=== PATIENT | female | born 1940 | race African-American/Black ===

== ENCOUNTER 2020-06-17 09:09 | Inpatient (IN) ==
[2020-06-17] MEDS ORDERED: 0.9 % Sodium Chloride 1,000 ML IVC SCH (09:30)
[2020-06-17 10:46] LABS: Adenovirus Not Detected (Not Detect); Coronavirus 229E Not Detected (Not Detect); Coronavirus HKU1 Not Detected (Not Detect); Coronavirus NL63 Not Detected (Not Detect); Coronavirus OC43 Not Detected (Not Detect); Human Metapneumovirus Not Detected (Not Detect); Human Rhinovirus/Enterovirus Not Detected (Not Detect); SARS-CoV-2 Not Detected (Not Detect)
[2020-06-17 10:47] LABS: Bordetella Pertussis Not Detected (Not Detect); Chlamydophila pneumoniae Not Detected (Not Detect); Influenza A Subtype 2009 H1 Not Detected (Not Detect); Influenza B Not Detected (Not Detect); Mycoplasma pneumoniae Not Detected (Not Detect); Parainfluenza Virus 1 Not Detected (Not Detect); Parainfluenza Virus 2 Not Detected (Not Detect); Parainfluenza Virus 3 Not Detected (Not Detect); Parainfluenza Virus 4 Not Detected (Not Detect); Respiratory Syncytial Virus Not Detected (Not Detect)
[2020-06-17 13:53] LABS: Potassium 3.7 mEq/L (3.5-5.1)
[2020-06-17] MEDS ORDERED: *HR* Midazolam HCl 2 MG/2 ML VIAL ONE (14:50)
[2020-06-17] MEDS ORDERED: *HR* FentaNYL (PF) 100 MCG/2 ML VIAL ONE (14:50)
[2020-06-17] MEDS ORDERED: 0.9 % Sodium Chloride 2,000 ML ONE (15:02)
[2020-06-17] MEDS ORDERED: Heparin 1,000 UNITS/500 mL 500 ML ONE (15:03)
[2020-06-17] MEDS ORDERED: ISOVUE-370 200 ML INFUS..BTL ONE (15:03)
[2020-06-17] MEDS ORDERED: Nitroglycerin 1,000 MCG/10 ML VIAL IV ONE (15:03)
[2020-06-17] MEDS ORDERED: *HR* Heparin 10,000 UNIT/10 ML VIAL ONE (15:03)
[2020-06-17] MEDS ORDERED: 0.9 % Sodium Chloride 1,000 ML ONE (15:32)
[2020-06-17] MEDS ORDERED: Perflutren Lipid Microsphere 1.3 ML in 0.9 % Sodium Chloride 8.7 ML IVP PRN ×2 (17:01→19:32)
[2020-06-17] MEDS ORDERED: *HR* Heparin 5,000 UNIT/ML VIAL IVP ONE (17:02)
[2020-06-17] MEDS ORDERED: *HR* Heparin 5,000 UNIT/ML VIAL IVP PRN ×2 (17:02)
[2020-06-17] MEDS ORDERED: Heparin 25,000UNIT/250ML 1/2NS 25,000 UNIT/250 ML IV.SOLN IVC SCH (17:15)
[2020-06-17] MEDS ORDERED: Dextrose 50 % in Water (Vial) 30 ML, Sodium Bicarbonate 20 MEQ, Potassium Chloride 15 M... TH ONE (18:45)
[2020-06-17 19:47] LABS: Basophils # 0.1 K/mcL (0.0-0.2); Eosinophils # 0.5 K/mcL (0.0-0.6); Eosinophils % 5.7 %; Hematocrit 38.7 % (35.3-44.9); Hemoglobin 11.7 g/dL (11.5-15.4); Immature Granulocytes % 0.5 % (0-4); Lymphocytes # 2.5 K/mcL (0.6-4.6); Lymphocytes % 28.3 %; Mean Corpuscular HGB Conc 30.2 g/dL (31.6-35.5); Mean Corpuscular Hemoglobin 27.9 pg (28.0-33.3); Mean Corpuscular Volume 92.1 fL (83.0-100.0); Mean Platelet Volume 10.6 fL (9.4-12.4); Monocytes # 0.8 K/mcL (0.0-1.3); Monocytes % 8.6 %; Neutrophils # 4.9 K/mcL (1.6-8.9); Platelet Count 275 K/mcL (140-400); Red Cell Distribution Width 15.5 % (11.5-14.5); Segmented Neutrophils % 55.9 %; White Blood Count 8.8 K/mcL (4.3-11.1)
[2020-06-17 19:53] LABS: Heparin anti-factor XA UFH 0.3 IU/mL (0.30-0.70); INR 1.2; Prothrombin Time 13.3 Seconds (9.4-12.1)
[2020-06-17 20:08] LABS: Calcium 9.9 mg/dL (8.6-10.3); Chol/HDL Ratio 3.7 (0-4.9); Potassium 3.6 mEq/L (3.5-5.1)
[2020-06-17] MEDS: Chlorhexidine Rinse 15 ML MOUTHWASH MM SCH (21:07)
[2020-06-17] MEDS: ALPRAZolam 0.5 MG TABLET PO SCH (21:08)
[2020-06-17] MEDS: Mirtazapine 15 MG TABLET PO SCH (21:08)
[2020-06-17 21:52] LABS: Estimated Average Glucose 123 mg/dl
[2020-06-18 01:52] LABS: Bilirubin,Urine Negative (Negative); Blood,Urine Negative (Negative); Clarity,Urine Clear (Clear); Color,Urine Light-Yellow (Yellow); Glucose,Urine (UA) Normal (Normal); Hyaline Casts,Urine Few per lpf (None Seen); Ketones,Urine Negative (Negative); Leukocyte Esterase,Urine Moderate (Negative); Mucus,Urine Few per lpf (None-Few); Nitrite,Urine Negative (Negative); Protein,Urine Negative (Neg-Trace); RBC,Urine 0-3 per hpf (0-3); Specific Gravity,Urine 1.021 (1.010-1.025); Urobilinogen,Urine Normal (Normal); WBC,Urine 15-30 per hpf (0-3)
[2020-06-18 04:06] LABS: Basophils # 0.1 K/mcL (0.0-0.2); Basophils % 0.6 %; Eosinophils # 0.7 K/mcL (0.0-0.6); Eosinophils % 6.4 %; Hematocrit 35.7 % (35.3-44.9); Immature Granulocytes % 0.5 % (0-4); Lymphocytes % 27.3 %; Mean Corpuscular HGB Conc 30.8 g/dL (31.6-35.5); Mean Corpuscular Hemoglobin 27.9 pg (28.0-33.3); Mean Corpuscular Volume 90.6 fL (83.0-100.0); Monocytes % 9.2 %; Neutrophils # 6.2 K/mcL (1.6-8.9); Platelet Count 277 K/mcL (140-400); Red Blood Count 3.94 M/mcL (3.82-4.97); Red Cell Distribution Width 15.5 % (11.5-14.5)
[2020-06-18 04:24] LABS: Calcium 9.6 mg/dL (8.6-10.3); Potassium 3.7 mEq/L (3.5-5.1)
[2020-06-18] MEDS: Ondansetron 4 MG/2 ML VIAL IVP PRN (04:59)
[2020-06-18] MEDS ORDERED: *HR* FentaNYL (PF) 1,000 MCG/20 ML VIAL ONE (06:57)
[2020-06-18] MEDS ORDERED: *HR* Midazolam HCl 5 MG/5 ML VIAL IVP ONE (06:57)
[2020-06-18] MEDS ORDERED: *HR* Propofol 200 MG/20 ML VIAL IVP ONE (06:57)
[2020-06-18] MEDS ORDERED: *HR* Rocuronium Bromide 50 MG/5 ML VIAL ONE ×2 (06:59→09:21)
[2020-06-18] MEDS ORDERED: Famotidine 20 MG/2 ML VIAL ONE (06:59)
[2020-06-18] MEDS ORDERED: *HR* Magnesium Sulfate 1 GM/2 ML VIAL ONE (06:59)
[2020-06-18] MEDS ORDERED: Dexamethasone 4 MG/ML VIAL ONE (06:59)
[2020-06-18] MEDS ORDERED: *HR* PHENYLEPHRINE 1,000 MCG/10 ML SYRINGE IVP ONE (06:59)
[2020-06-18] MEDS ORDERED: CeFAZolin Syr 2,000MG/20 ML 2,000 MG/20 ML SYRINGE IVPB ONE (07:00)
[2020-06-18] MEDS ORDERED: Lidocaine 2% Syringe 100 MG/5 ML ONE (07:00)
[2020-06-18] MEDS ORDERED: Tranexamic Acid 1,000 MG/10 ML VIAL ONE (07:00)
[2020-06-18] MEDS: Aspirin 81 MG TAB.CHEW PO SCH (07:22)
[2020-06-18] MEDS: ALPRAZolam 0.5 MG TABLET PO SCH ×2 (07:23→21:57)
[2020-06-18] MEDS: Chlorhexidine Rinse 15 ML MOUTHWASH MM SCH ×2 (07:23→21:58)
[2020-06-18] MEDS: allopurinoL 300 MG TABLET PO SCH (07:23)
[2020-06-18] MEDS: allopurinoL 100 MG TABLET PO SCH (07:23)
[2020-06-18] MEDS ORDERED: Dextrose 50 % in Water (Vial) 30 ML, Sodium Bicarbonate 20 MEQ, Lidocaine 1% 5 ML, Insu... TH ONE ×3 (07:45)
[2020-06-18] MEDS ORDERED: Heparin 15,000 UNIT in 0.9 % Sodium Chloride 500 ML IV ONE (07:45)
[2020-06-18] MEDS ORDERED: Norepinephrine 4 MG in 0.9 % Sodium Chloride 250 ML IVC PRN (07:45)
[2020-06-18] MEDS ORDERED: Insulin Human Regular 100 UNIT in 0.9 % Sodium Chloride 100 ML IV PRN (07:45)
[2020-06-18 08:29] LABS: ABG Base Excess 1 mEq/L (-2 to 3); ABG Chloride 106 mEq/L (98-107); ABG Glucose 96 mg/dL (60-95); ABG HCO3 28 mEq/L (21-27); ABG Ionized Calcium 1.32 mmol/L (1.15-1.35); ABG Oxygen Saturation 100 % (95-98); ABG PCO2 50 mmHg (35-45); ABG PH 7.35 pH Units (7.32-7.45); ABG PO2 478 mmHg (85-104); ABG TCO2 29 mEq/L (20-26)
[2020-06-18 09:44] LABS: ABG Base Excess -3 mEq/L (-2 to 3); ABG Chloride 108 mEq/L (98-107); ABG Glucose 138 mg/dL (60-95); ABG HCO3 21 mEq/L (21-27); ABG Oxygen Saturation 100 % (95-98); ABG PCO2 36 mmHg (35-45); ABG PH 7.38 pH Units (7.32-7.45); ABG PO2 250 mmHg (85-104); ABG TCO2 23 mEq/L (20-26)
[2020-06-18] MEDS ORDERED: Protamine Sulfate 250 MG/25 ML VIAL IVP ONE (09:57)
[2020-06-18] MEDS ORDERED: Calcium Gluconate 1,000 MG/10 ML VIAL ONE (09:57)
[2020-06-18 10:31] LABS: ABG Base Excess 3 mEq/L (-2 to 3); ABG Chloride 103 mEq/L (98-107); ABG Glucose 187 mg/dL (60-95); ABG HCO3 28 mEq/L (21-27); ABG Ionized Calcium 1.09 mmol/L (1.15-1.35); ABG Oxygen Saturation 100 % (95-98); ABG PCO2 44 mmHg (35-45); ABG PH 7.42 pH Units (7.32-7.45); ABG PO2 612 mmHg (85-104); ABG TCO2 29 mEq/L (20-26)
[2020-06-18] MEDS ORDERED: *HR* FentaNYL (PF) 250 MCG/5 ML VIAL ONE (10:55)
[2020-06-18 11:01] LABS: ABG Base Excess 1 mEq/L (-2 to 3); ABG Chloride 103 mEq/L (98-107); ABG Glucose 148 mg/dL (60-95); ABG HCO3 27 mEq/L (21-27); ABG Oxygen Saturation 100 % (95-98); ABG PCO2 45 mmHg (35-45); ABG PH 7.38 pH Units (7.32-7.45); ABG PO2 601 mmHg (85-104); ABG TCO2 28 mEq/L (20-26)
[2020-06-18] MEDS ORDERED: Albumin Human 5% 12.5 GM/250 ML IV.SOLN ONE (11:38)
[2020-06-18 11:42] LABS: ABG Base Excess -3 mEq/L (-2 to 3); ABG Chloride 108 mEq/L (98-107); ABG Glucose 114 mg/dL (60-95); ABG HCO3 22 mEq/L (21-27); ABG Ionized Calcium 1.27 mmol/L (1.15-1.35); ABG Oxygen Saturation 100 % (95-98); ABG PCO2 40 mmHg (35-45); ABG PH 7.36 pH Units (7.32-7.45); ABG PO2 195 mmHg (85-104); ABG TCO2 24 mEq/L (20-26)
[2020-06-18] MEDS ORDERED: *HR* Dextrose 50 % in Water (Vial) 50 ML VIAL IVP PRN (12:26)
[2020-06-18] MEDS ORDERED: Albumin Human 5% 12.5 GM/250 ML IV.SOLN IVPB PRN (12:26)
[2020-06-18] MEDS ORDERED: Insulin Regular, Human 100 UNIT/ML IV PRN (12:26)
[2020-06-18] MEDS ORDERED: Naloxone 0.4 MG/ML INJ IVP PRN (12:26)
[2020-06-18] MEDS ORDERED: Potassium Chloride 40 MEQ/200 ML BAG IVPB PRN (12:26)
[2020-06-18] MEDS ORDERED: Acetaminophen 325 MG TABLET PO PRN (12:26)
[2020-06-18] MEDS ORDERED: *HR* Promethazine 25 MG/ML VIAL IVP PRN (12:26)
[2020-06-18 12:50] LABS: ABG Base Excess -2 mEq/L (-2 to 3); ABG HCO3 23 mEq/L (21-27); ABG Oxygen Saturation 99 % (95-98); ABG PCO2 38 mmHg (35-45); ABG PH 7.39 pH Units (7.32-7.45); ABG PO2 115 mmHg (85-104); ABG TCO2 24 mEq/L (20-26); Blood Gas Modality ASSIST CONTROL; Blood Gas VT 500 cc
[2020-06-18 13:14] LABS: Basophils % 0.3 %; Monocytes % 4.8 %; Nucleated Red Blood Cells 0.1 /100 WBC (0)
[2020-06-18 13:16] LABS: Basophils # 0.1 K/mcL (0.0-0.2); Eosinophils # 0.3 K/mcL (0.0-0.6); Eosinophils % 1.1 %; Hematocrit 36.3 % (35.3-44.9); Immature Granulocytes % 1.6 % (0-4); Mean Corpuscular HGB Conc 32.8 g/dL (31.6-35.5); Mean Corpuscular Hemoglobin 29.5 pg (28.0-33.3); Mean Corpuscular Volume 90.1 fL (83.0-100.0); Mean Platelet Volume 10.7 fL (9.4-12.4); Monocytes # 1.4 K/mcL (0.0-1.3); Red Blood Count 4.03 M/mcL (3.82-4.97); Red Cell Distribution Width 15.2 % (11.5-14.5); Segmented Neutrophils % 86.2 %
[2020-06-18 13:17] LABS: Lymphocytes # 1.8 K/mcL (0.6-4.6); Neutrophils # 25.2 K/mcL (1.6-8.9)
[2020-06-18 13:20] LABS: Hemoglobin 11.9 g/dL (11.5-15.4); Platelet Count 154 K/mcL (140-400); White Blood Count 29.2 K/mcL (4.3-11.1)
[2020-06-18 13:28] LABS: Activated Partial Thrombo Time 32.7 Seconds (26.0-36.0); INR 1.2; Prothrombin Time 13.8 Seconds (9.4-12.1)
[2020-06-18 13:29] LABS: Calcium 9.3 mg/dL (8.6-10.3); Magnesium 2.7 mg/dL (1.6-2.6); Potassium 4.6 mEq/L (3.5-5.1)
[2020-06-18 13:34] LABS: Platelet Estimate Normal (Normal)
[2020-06-18] MEDS: 0.9 % Sodium Chloride 1,000 ML IVC SCH (13:42)
[2020-06-18] MEDS: niCARdipine 20 MG/200 ML MLS IVC SCH ×2 (13:42→14:22)
[2020-06-18] MEDS: Norepinephrine 4 MG/254 ML IV.SOLN IVC SCH (13:43)
[2020-06-18] MEDS: Insulin Human Regular 100 UNIT in 0.9 % Sodium Chloride 100 ML IVC SCH (14:20)
[2020-06-18] MEDS: *HR* OxyCODONE/APAP 5/325 TABLET PO PRN ×2 (14:36→23:28)
[2020-06-18] MEDS: CeFAZolin 2 GM/120 ML BAG IVPB SCH (15:21)
[2020-06-18 16:29] LABS: ABG Base Excess -2 mEq/L (-2 to 3); ABG HCO3 22 mEq/L (21-27); ABG Oxygen Saturation 98 % (95-98); ABG PCO2 36 mmHg (35-45); ABG PO2 108 mmHg (85-104); ABG TCO2 23 mEq/L (20-26); Blood Gas Modality ASSIST CONTROL; Blood Gas VT 500 cc
[2020-06-18] MEDS ORDERED: Heparin 1,000 UNITS/500 mL IV.SOLN IR ONE (16:47)
[2020-06-18] MEDS ORDERED: Lidocaine 2% Syringe 100 MG/5 ML IVP ONE (16:47)
[2020-06-18] MEDS ORDERED: Tranexamic Acid 1,000 MG/10 ML VIAL IR ONE (16:47)
[2020-06-18] MEDS ORDERED: D5% in Water 250 ML IV BAG IV ONE (16:47)
[2020-06-18] MEDS ORDERED: Mannitol 25% vial 12.5 GM/50 ML VIAL IVPB ONE (16:47)
[2020-06-18] MEDS ORDERED: *HR* Magnesium Sulfate 2 GM/50 ML PIGGYBACK IVPB ONE (16:47)
[2020-06-18] MEDS ORDERED: Albumin Human 25% 25 GM/100 ML IV.SOLN IVPB ONE (16:47)
[2020-06-18] MEDS ORDERED: *HR* Heparin 10,000 UNIT/10 ML VIAL IR ONE (16:47)
[2020-06-18] MEDS ORDERED: *HR* Phenylephrine 10 MG/ML VIAL IVC ONE (16:47)
[2020-06-18] MEDS: *HR* FentaNYL (PF) 100 MCG/2 ML VIAL IVP PRN ×3 (18:00→21:57)
[2020-06-18 20:29] LABS: ABG Base Excess -2 mEq/L (-2 to 3); ABG HCO3 22 mEq/L (21-27); ABG Oxygen Saturation 98 % (95-98); ABG PCO2 35 mmHg (35-45); ABG PH 7.41 pH Units (7.32-7.45); ABG PO2 99 mmHg (85-104); ABG TCO2 23 mEq/L (20-26); Blood Gas Modality ASSIST CONTROL; Blood Gas VT 500 cc
[2020-06-18] MEDS: Mirtazapine 15 MG TABLET PO SCH (21:57)
[2020-06-18 22:12] LABS: ABG Base Excess -2 mEq/L (-2 to 3); ABG HCO3 23 mEq/L (21-27); ABG Oxygen Saturation 97 % (95-98); ABG PCO2 43 mmHg (35-45); ABG PH 7.35 pH Units (7.32-7.45); ABG PO2 99 mmHg (85-104); ABG TCO2 25 mEq/L (20-26)
[2020-06-19] MEDS: CeFAZolin 2 GM/120 ML BAG IVPB SCH (01:21)
[2020-06-19] MEDS: 0.9 % Sodium Chloride 1,000 ML IVC SCH (02:37)
[2020-06-19] MEDS: *HR* OxyCODONE/APAP 5/325 TABLET PO PRN ×2 (03:22→09:23)
[2020-06-19 04:59] LABS: Basophils # 0.1 K/mcL (0.0-0.2); Basophils % 0.2 %; Hematocrit 28.3 % (35.3-44.9); Immature Granulocytes % 0.8 % (0-4); Lymphocytes # 1.2 K/mcL (0.6-4.6); Lymphocytes % 5.2 %; Mean Corpuscular HGB Conc 31.8 g/dL (31.6-35.5); Mean Corpuscular Hemoglobin 29.2 pg (28.0-33.3); Mean Corpuscular Volume 91.9 fL (83.0-100.0); Mean Platelet Volume 11.4 fL (9.4-12.4); Monocytes # 1.9 K/mcL (0.0-1.3); Monocytes % 8.3 %; Neutrophils # 19.6 K/mcL (1.6-8.9); Nucleated Red Blood Cells 0.2 /100 WBC (0); Platelet Count 135 K/mcL (140-400); Red Blood Count 3.08 M/mcL (3.82-4.97); Red Cell Distribution Width 15.3 % (11.5-14.5); Segmented Neutrophils % 85.5 %
[2020-06-19 05:16] LABS: Calcium 8.9 mg/dL (8.6-10.3); Potassium 4.4 mEq/L (3.5-5.1)
[2020-06-19] MEDS ORDERED: ALPRAZolam 0.25 MG TABLET PO PRN (08:04)
[2020-06-19] MEDS: Chlorhexidine Rinse 15 ML MOUTHWASH MM SCH ×2 (08:41→20:56)
[2020-06-19] MEDS: Pantoprazole 40 MG VIAL IVP SCH (08:41)
[2020-06-19] MEDS: allopurinoL 100 MG TABLET PO SCH (08:41)
[2020-06-19] MEDS: ALPRAZolam 0.5 MG TABLET PO SCH ×2 (08:42→20:56)
[2020-06-19] MEDS: allopurinoL 300 MG TABLET PO SCH (08:42)
[2020-06-19] MEDS: Aspirin 81 MG TAB.CHEW PO SCH (08:42)
[2020-06-19] MEDS: Ringers Solution, Lactated 1,000 ML IVC SCH ×2 (09:09→22:24)
[2020-06-19 10:32] LABS: Sodium, Urine 15.9 mEq/L
[2020-06-19] MEDS: Ondansetron 4 MG/2 ML VIAL IVP PRN (12:09)
[2020-06-19] MEDS: Insulin Human Regular 100 UNIT in 0.9 % Sodium Chloride 100 ML IVC SCH (14:55)
[2020-06-19] MEDS: *HR* Heparin 5,000 UNIT/ML VIAL SQ SCH (17:52)
[2020-06-19] MEDS: Piperacillin/Tazobactam 3.375 GM in 0.9 % Sodium Chloride Mini Bag 100 ML IVPB SCH (17:53)
[2020-06-19] MEDS: Mirtazapine 15 MG TABLET PO SCH (20:56)
[2020-06-20 03:47] LABS: Basophils % 0.3 %; Hemoglobin 7.7 g/dL (11.5-15.4); Nucleated Red Blood Cells 0.3 /100 WBC (0)
[2020-06-20 03:48] LABS: Basophils # 0.1 K/mcL (0.0-0.2); Hematocrit 24.4 % (35.3-44.9); Immature Granulocytes % 0.6 % (0-4); Lymphocytes # 1.7 K/mcL (0.6-4.6); Lymphocytes % 6.1 %; Mean Corpuscular HGB Conc 31.6 g/dL (31.6-35.5); Mean Corpuscular Hemoglobin 29.3 pg (28.0-33.3); Mean Corpuscular Volume 92.8 fL (83.0-100.0); Mean Platelet Volume 11.9 fL (9.4-12.4); Monocytes # 2.5 K/mcL (0.0-1.3); Monocytes % 9.1 %; Platelet Count 133 K/mcL (140-400); Red Blood Count 2.63 M/mcL (3.82-4.97); Red Cell Distribution Width 15.6 % (11.5-14.5); Segmented Neutrophils % 83.9 %; White Blood Count 27.1 K/mcL (4.3-11.1)
[2020-06-20 03:50] LABS: Neutrophils # 22.7 K/mcL (1.6-8.9)
[2020-06-20 04:05] LABS: Calcium 8.7 mg/dL (8.6-10.3); Potassium 4.2 mEq/L (3.5-5.1)
[2020-06-20] MEDS: Piperacillin/Tazobactam 3.375 GM in 0.9 % Sodium Chloride Mini Bag 100 ML IVPB SCH ×2 (05:36→18:19)
[2020-06-20] MEDS: *HR* Heparin 5,000 UNIT/ML VIAL SQ SCH ×2 (05:37→17:31)
[2020-06-20] MEDS: Chlorhexidine Rinse 15 ML MOUTHWASH MM SCH ×2 (08:20→19:40)
[2020-06-20] MEDS: allopurinoL 100 MG TABLET PO SCH (08:21)
[2020-06-20] MEDS: allopurinoL 300 MG TABLET PO SCH (08:21)
[2020-06-20] MEDS: Aspirin 81 MG TAB.CHEW PO SCH (08:21)
[2020-06-20] MEDS: Pantoprazole 40 MG VIAL IVP SCH (08:21)
[2020-06-20] MEDS: Ringers Solution, Lactated 1,000 ML IVC SCH (11:43)
[2020-06-20] MEDS: Ondansetron 4 MG/2 ML VIAL IVP PRN (11:54)
[2020-06-20] MEDS: ALPRAZolam 0.5 MG TABLET PO SCH ×2 (17:33→20:07)
[2020-06-20] MEDS: niCARdipine 20 MG/200 ML MLS IVC SCH ×4 (19:39→19:43)
[2020-06-20] MEDS: Insulin Human Regular 100 UNIT in 0.9 % Sodium Chloride 100 ML IVC SCH (19:40)
[2020-06-20] MEDS: Norepinephrine 4 MG/254 ML IV.SOLN IVC SCH ×2 (19:40→19:41)
[2020-06-20] MEDS: Mirtazapine 15 MG TABLET PO SCH (20:07)
[2020-06-20] MEDS ORDERED: Haloperidol Lactate 5 MG/ML VIAL IVP PRN (20:49)
[2020-06-21] MEDS: Ringers Solution, Lactated 1,000 ML IVC SCH ×2 (00:03→14:21)
[2020-06-21 05:31] LABS: Basophils # 0.1 K/mcL (0.0-0.2); Basophils % 0.2 %; Eosinophils # 0.3 K/mcL (0.0-0.6); Eosinophils % 1.3 %; Hematocrit 21.1 % (35.3-44.9); Hemoglobin 6.6 g/dL (11.5-15.4); Immature Granulocytes % 1.3 % (0-4); Lymphocytes # 2.1 K/mcL (0.6-4.6); Lymphocytes % 8.8 %; Mean Corpuscular HGB Conc 31.3 g/dL (31.6-35.5); Mean Corpuscular Hemoglobin 29.3 pg (28.0-33.3); Mean Corpuscular Volume 93.8 fL (83.0-100.0); Mean Platelet Volume 11.2 fL (9.4-12.4); Monocytes # 1.9 K/mcL (0.0-1.3); Monocytes % 7.9 %; Neutrophils # 19.3 K/mcL (1.6-8.9); Nucleated Red Blood Cells 1.8 /100 WBC (0); Platelet Count 133 K/mcL (140-400); Red Blood Count 2.25 M/mcL (3.82-4.97); Red Cell Distribution Width 15.9 % (11.5-14.5); Segmented Neutrophils % 80.5 %
[2020-06-21 05:50] LABS: Calcium 8.4 mg/dL (8.6-10.3); Potassium 3.5 mEq/L (3.5-5.1)
[2020-06-21] MEDS: Piperacillin/Tazobactam 3.375 GM in 0.9 % Sodium Chloride Mini Bag 100 ML IVPB SCH ×2 (06:19→18:05)
[2020-06-21] MEDS: *HR* Heparin 5,000 UNIT/ML VIAL SQ SCH ×2 (06:23→18:06)
[2020-06-21] MEDS ORDERED: 0.9 % Sodium Chloride 250 ML ONE (08:38)
[2020-06-21] MEDS: Pantoprazole 40 MG VIAL IVP SCH (08:51)
[2020-06-21] MEDS: allopurinoL 300 MG TABLET PO SCH (08:51)
[2020-06-21] MEDS: ALPRAZolam 0.5 MG TABLET PO SCH ×2 (08:51→20:00)
[2020-06-21] MEDS: allopurinoL 100 MG TABLET PO SCH (08:51)
[2020-06-21] MEDS: Aspirin 81 MG TAB.CHEW PO SCH (08:51)
[2020-06-21] MEDS: Chlorhexidine Rinse 15 ML MOUTHWASH MM SCH ×2 (08:52→19:59)
[2020-06-21] MEDS ORDERED: Furosemide 20 MG/2 ML VIAL IVP ONE (10:57)
[2020-06-21] MEDS: Insulin Human Regular 100 UNIT in 0.9 % Sodium Chloride 100 ML IVC SCH (11:22)
[2020-06-21] MEDS: Norepinephrine 4 MG/254 ML IV.SOLN IVC SCH (11:23)
[2020-06-21] MEDS: *HR* OxyCODONE/APAP 5/325 TABLET PO PRN (14:17)
[2020-06-21 18:20] LABS: Basophils # 0.1 K/mcL (0.0-0.2); Basophils % 0.3 %; Eosinophils # 0.7 K/mcL (0.0-0.6); Immature Granulocytes % 1.7 % (0-4); Lymphocytes # 2.2 K/mcL (0.6-4.6); Lymphocytes % 9.4 %; Mean Corpuscular HGB Conc 31.4 g/dL (31.6-35.5); Mean Corpuscular Hemoglobin 29.1 pg (28.0-33.3); Mean Corpuscular Volume 92.7 fL (83.0-100.0); Mean Platelet Volume 10.7 fL (9.4-12.4); Monocytes # 1.7 K/mcL (0.0-1.3); Monocytes % 7.6 %; Neutrophils # 17.9 K/mcL (1.6-8.9); Nucleated Red Blood Cells 3.9 /100 WBC (0); Platelet Count 139 K/mcL (140-400); Red Blood Count 3.02 M/mcL (3.82-4.97); Red Cell Distribution Width 16.1 % (11.5-14.5)
[2020-06-21 18:22] LABS: Hemoglobin 8.8 g/dL (11.5-15.4)
[2020-06-21] MEDS: Mirtazapine 15 MG TABLET PO SCH (20:02)
[2020-06-22] MEDS: *HR* OxyCODONE/APAP 5/325 TABLET PO PRN ×3 (03:09→21:59)
[2020-06-22] MEDS: Ringers Solution, Lactated 1,000 ML IVC SCH ×2 (03:22→16:22)
[2020-06-22 04:26] LABS: Basophils # 0.1 K/mcL (0.0-0.2); Basophils % 0.4 %; Eosinophils # 0.8 K/mcL (0.0-0.6); Eosinophils % 3.8 %; Hematocrit 27.9 % (35.3-44.9); Hemoglobin 8.7 g/dL (11.5-15.4); Immature Granulocytes % 1.8 % (0-4); Lymphocytes # 2.2 K/mcL (0.6-4.6); Lymphocytes % 10.4 %; Mean Corpuscular HGB Conc 31.2 g/dL (31.6-35.5); Mean Corpuscular Hemoglobin 28.7 pg (28.0-33.3); Mean Corpuscular Volume 92.1 fL (83.0-100.0); Mean Platelet Volume 11.4 fL (9.4-12.4); Monocytes # 1.8 K/mcL (0.0-1.3); Monocytes % 8.2 %; Neutrophils # 16.3 K/mcL (1.6-8.9); Nucleated Red Blood Cells 3.7 /100 WBC (0); Platelet Count 151 K/mcL (140-400); Red Blood Count 3.03 M/mcL (3.82-4.97); Red Cell Distribution Width 16.2 % (11.5-14.5); Segmented Neutrophils % 75.4 %; White Blood Count 21.5 K/mcL (4.3-11.1)
[2020-06-22 04:31] LABS: Calcium 8.5 mg/dL (8.6-10.3); Potassium 3.3 mEq/L (3.5-5.1)
[2020-06-22] MEDS: Piperacillin/Tazobactam 3.375 GM in 0.9 % Sodium Chloride Mini Bag 100 ML IVPB SCH ×3 (05:37→23:28)
[2020-06-22] MEDS: *HR* Heparin 5,000 UNIT/ML VIAL SQ SCH ×2 (05:38→18:58)
[2020-06-22] MEDS ORDERED: Potassium Chloride Elixir 20 MEQ/15 ML UDC PO ONE (07:00)
[2020-06-22] MEDS: Chlorhexidine Rinse 15 ML MOUTHWASH MM SCH ×2 (08:36→20:52)
[2020-06-22] MEDS: Aspirin 81 MG TAB.CHEW PO SCH (08:36)
[2020-06-22] MEDS: ALPRAZolam 0.5 MG TABLET PO SCH ×2 (09:26→20:49)
[2020-06-22] MEDS: allopurinoL 100 MG TABLET PO SCH (09:27)
[2020-06-22] MEDS: allopurinoL 300 MG TABLET PO SCH (09:27)
[2020-06-22 15:03] LABS: ABG Base Excess 4 mEq/L (-2 to 3); ABG HCO3 29 mEq/L (21-27); ABG Oxygen Saturation 98 % (95-98); ABG PCO2 45 mmHg (35-45); ABG PH 7.41 pH Units (7.32-7.45); ABG PO2 104 mmHg (85-104); ABG TCO2 30 mEq/L (20-26)
[2020-06-22] MEDS: Norepinephrine 4 MG/254 ML IV.SOLN IVC SCH (16:00)
[2020-06-22 16:38] LABS: VBG HCO3 27 mEq/L (21-27); VBG PCO2 49 mmHg (41-51); VBG PH 7.36 pH Units (7.32-7.42); VBG PO2 85 mmHg (25-50)
[2020-06-22 16:57] LABS: Magnesium 1.6 mg/dL (1.6-2.6); Phosphorous 1.3 mg/dL (2.7-4.5)
[2020-06-22 17:10] LABS: Thyroid Stimulating Hormone 5.681 mcIU/mL (0.340-5.600)
[2020-06-22] MEDS: niCARdipine 20 MG/200 ML MLS IVC SCH ×2 (19:06→19:07)
[2020-06-22] MEDS: Mirtazapine 15 MG TABLET PO SCH (20:49)
[2020-06-23 03:34] LABS: Basophils # 0.1 K/mcL (0.0-0.2); Basophils % 0.6 %; Eosinophils # 0.9 K/mcL (0.0-0.6); Eosinophils % 5.1 %; Hematocrit 28.2 % (35.3-44.9); Hemoglobin 8.6 g/dL (11.5-15.4); Immature Granulocytes % 2.9 % (0-4); Lymphocytes # 1.8 K/mcL (0.6-4.6); Lymphocytes % 10.1 %; Mean Corpuscular HGB Conc 30.5 g/dL (31.6-35.5); Mean Corpuscular Hemoglobin 28.2 pg (28.0-33.3); Mean Corpuscular Volume 92.5 fL (83.0-100.0); Mean Platelet Volume 10.8 fL (9.4-12.4); Monocytes # 1.9 K/mcL (0.0-1.3); Monocytes % 10.2 %; Neutrophils # 12.9 K/mcL (1.6-8.9); Nucleated Red Blood Cells 2.5 /100 WBC (0); Platelet Count 187 K/mcL (140-400); Red Blood Count 3.05 M/mcL (3.82-4.97); Red Cell Distribution Width 16.3 % (11.5-14.5); Segmented Neutrophils % 71.1 %; White Blood Count 18.1 K/mcL (4.3-11.1)
[2020-06-23 03:53] LABS: BUN/Creatinine Ratio 20 (6-26); Blood Urea Nitrogen 21 mg/dL (8-23); Calcium 8.3 mg/dL (8.6-10.3); Carbon Dioxide 27 mEq/L (23-29); Chloride 109 mEq/L (98-107); Glucose 118 mg/dL (70-105); Magnesium 1.6 mg/dL (1.6-2.6); Osmolality,Calculated 300 (280-300); Phosphorous 1.6 mg/dL (2.7-4.5); Potassium 3.8 mEq/L (3.5-5.1); Sodium 143 mEq/L (136-145); eGFR For African Americans > 60 (> 60); eGFR For Non-African Americans 52 (> 60)
[2020-06-23] MEDS: *HR* Heparin 5,000 UNIT/ML VIAL SQ SCH ×2 (05:38→18:08)
[2020-06-23] MEDS: Ringers Solution, Lactated 1,000 ML IVC SCH ×2 (05:39→19:51)
[2020-06-23] MEDS: Chlorhexidine Rinse 15 ML MOUTHWASH MM SCH ×2 (10:00→19:52)
[2020-06-23] MEDS: Piperacillin/Tazobactam 3.375 GM in 0.9 % Sodium Chloride Mini Bag 100 ML IVPB SCH ×3 (10:00→23:41)
[2020-06-23] MEDS: allopurinoL 300 MG TABLET PO SCH (10:01)
[2020-06-23] MEDS: Aspirin 81 MG TAB.CHEW PO SCH (10:01)
[2020-06-23] MEDS: allopurinoL 100 MG TABLET PO SCH (10:01)
[2020-06-23] MEDS: ALPRAZolam 0.5 MG TABLET PO SCH ×2 (10:01→19:52)
[2020-06-23] MEDS: Norepinephrine 4 MG/254 ML IV.SOLN IVC SCH (10:26)
[2020-06-23] MEDS: *HR* OxyCODONE/APAP 5/325 TABLET PO PRN (16:21)
[2020-06-23] MEDS: Mirtazapine 15 MG TABLET PO SCH (19:52)
[2020-06-24] MEDS: *HR* OxyCODONE/APAP 5/325 TABLET PO PRN ×2 (00:54→07:29)
[2020-06-24] MEDS: *HR* Heparin 5,000 UNIT/ML VIAL SQ SCH ×2 (05:34→18:23)
[2020-06-24 06:07] LABS: Basophils # 0.1 K/mcL (0.0-0.2); Basophils % 0.6 %; Eosinophils % 5.2 %; Hematocrit 27.5 % (35.3-44.9); Hemoglobin 8.6 g/dL (11.5-15.4); Immature Granulocytes % 4.9 % (0-4); Lymphocytes % 10.9 %; Mean Corpuscular HGB Conc 31.3 g/dL (31.6-35.5); Mean Corpuscular Hemoglobin 29.1 pg (28.0-33.3); Mean Corpuscular Volume 92.9 fL (83.0-100.0); Mean Platelet Volume 11.4 fL (9.4-12.4); Monocytes # 1.7 K/mcL (0.0-1.3); Monocytes % 9.2 %; Neutrophils # 12.8 K/mcL (1.6-8.9); Nucleated Red Blood Cells 1.2 /100 WBC (0); Platelet Count 194 K/mcL (140-400); Red Blood Count 2.96 M/mcL (3.82-4.97); Segmented Neutrophils % 69.2 %; White Blood Count 18.5 K/mcL (4.3-11.1)
[2020-06-24 06:31] LABS: BUN/Creatinine Ratio 21 (6-26); Blood Urea Nitrogen 19 mg/dL (8-23); Calcium 8.4 mg/dL (8.6-10.3); Carbon Dioxide 24 mEq/L (23-29); Chloride 107 mEq/L (98-107); Glucose 117 mg/dL (70-105); Osmolality,Calculated 291 (280-300); Potassium 3.5 mEq/L (3.5-5.1); Sodium 139 mEq/L (136-145); eGFR For African Americans > 60 (> 60); eGFR For Non-African Americans 59 (> 60)
[2020-06-24] MEDS: ALPRAZolam 0.5 MG TABLET PO SCH ×3 (07:28→20:29)
[2020-06-24] MEDS: Aspirin 81 MG TAB.CHEW PO SCH ×2 (07:28→10:18)
[2020-06-24] MEDS: allopurinoL 300 MG TABLET PO SCH ×2 (07:28→10:19)
[2020-06-24] MEDS: allopurinoL 100 MG TABLET PO SCH ×2 (07:28→10:19)
[2020-06-24] MEDS: Piperacillin/Tazobactam 3.375 GM in 0.9 % Sodium Chloride Mini Bag 100 ML IVPB SCH ×2 (07:29→17:02)
[2020-06-24] MEDS: Chlorhexidine Rinse 15 ML MOUTHWASH MM SCH ×3 (07:29→20:29)
[2020-06-24] MEDS ORDERED: Ondansetron 4 MG/2 ML VIAL IVP PRN (08:37)
[2020-06-24] MEDS ORDERED: *HR* Promethazine 25 MG/ML VIAL IVP PRN (08:37)
[2020-06-24] MEDS ORDERED: ALPRAZolam 0.25 MG TABLET PO PRN (08:37)
[2020-06-24] MEDS ORDERED: Acetaminophen 325 MG TABLET PO PRN (08:37)
[2020-06-24] MEDS ORDERED: Haloperidol Lactate 5 MG/ML VIAL IVP PRN (08:37)
[2020-06-24] MEDS ORDERED: Naloxone 0.4 MG/ML INJ IVP PRN (08:37)
[2020-06-24] MEDS ORDERED: *HR* Dextrose 50 % in Water (Vial) 50 ML VIAL IVP PRN (08:37)
[2020-06-24] MEDS: Venlafaxine XR (24 HR) 150 MG CAP.ER.24H PO SCH ×2 (10:18→20:30)
[2020-06-24] MEDS: Vitamin E 200 UNIT (90MG) CAPSULE PO SCH (10:18)
[2020-06-24] MEDS: Vitamin B Complex/Vit C/Vit E 1 EACH TABLET PO SCH (10:18)
[2020-06-24] MEDS: Cholecalciferol (D-3) 1,000 UNIT (25MCG) TABLET PO SCH (10:18)
[2020-06-24] MEDS: Nystatin POWDER 30 GM BOTTLE TP SCH (20:31)
[2020-06-24] MEDS: Mirtazapine 15 MG TABLET PO SCH (20:31)
[2020-06-25] MEDS: Piperacillin/Tazobactam 3.375 GM in 0.9 % Sodium Chloride Mini Bag 100 ML IVPB SCH ×4 (00:19→23:33)
[2020-06-25] MEDS: *HR* OxyCODONE/APAP 5/325 TABLET PO PRN ×2 (04:53→21:15)
[2020-06-25] MEDS: *HR* Heparin 5,000 UNIT/ML VIAL SQ SCH ×2 (04:54→17:02)
[2020-06-25] MEDS: Vitamin B Complex/Vit C/Vit E 1 EACH TABLET PO SCH (08:30)
[2020-06-25] MEDS: ALPRAZolam 0.5 MG TABLET PO SCH ×2 (08:30→21:14)
[2020-06-25] MEDS: allopurinoL 300 MG TABLET PO SCH (08:30)
[2020-06-25] MEDS: Venlafaxine XR (24 HR) 150 MG CAP.ER.24H PO SCH ×2 (08:31→21:15)
[2020-06-25] MEDS: Cholecalciferol (D-3) 1,000 UNIT (25MCG) TABLET PO SCH (08:31)
[2020-06-25] MEDS: allopurinoL 100 MG TABLET PO SCH (08:31)
[2020-06-25] MEDS: Nystatin POWDER 30 GM BOTTLE TP SCH ×2 (08:31→21:15)
[2020-06-25] MEDS: Chlorhexidine Rinse 15 ML MOUTHWASH MM SCH ×2 (08:31→21:15)
[2020-06-25] MEDS: Vitamin E 200 UNIT (90MG) CAPSULE PO SCH (08:32)
[2020-06-25] MEDS: Aspirin 81 MG TAB.CHEW PO SCH (08:32)
[2020-06-25] MEDS: Mirtazapine 15 MG TABLET PO SCH (21:14)
[2020-06-26] MEDS: *HR* Heparin 5,000 UNIT/ML VIAL SQ SCH ×2 (05:39→17:45)
[2020-06-26] MEDS: Vitamin E 200 UNIT (90MG) CAPSULE PO SCH (07:33)
[2020-06-26] MEDS: Aspirin 81 MG TAB.CHEW PO SCH (07:34)
[2020-06-26] MEDS: allopurinoL 100 MG TABLET PO SCH (07:34)
[2020-06-26] MEDS: Vitamin B Complex/Vit C/Vit E 1 EACH TABLET PO SCH (07:34)
[2020-06-26] MEDS: allopurinoL 300 MG TABLET PO SCH (07:34)
[2020-06-26] MEDS: *HR* OxyCODONE/APAP 5/325 TABLET PO PRN ×2 (07:34→19:42)
[2020-06-26] MEDS: Venlafaxine XR (24 HR) 150 MG CAP.ER.24H PO SCH ×2 (07:34→19:41)
[2020-06-26] MEDS: Chlorhexidine Rinse 15 ML MOUTHWASH MM SCH ×2 (07:35→19:42)
[2020-06-26] MEDS: Piperacillin/Tazobactam 3.375 GM in 0.9 % Sodium Chloride Mini Bag 100 ML IVPB SCH ×3 (07:35→23:37)
[2020-06-26] MEDS: Cholecalciferol (D-3) 1,000 UNIT (25MCG) TABLET PO SCH (07:35)
[2020-06-26] MEDS: Nystatin POWDER 30 GM BOTTLE TP SCH ×2 (07:35→19:43)
[2020-06-26] MEDS: ALPRAZolam 0.5 MG TABLET PO SCH ×2 (07:35→19:42)
[2020-06-26] MEDS: Mirtazapine 15 MG TABLET PO SCH (19:41)
[2020-06-27 05:22] LABS: Hematocrit 26.8 % (35.3-44.9); Hemoglobin 8.1 g/dL (11.5-15.4); Mean Corpuscular HGB Conc 30.2 g/dL (31.6-35.5); Mean Corpuscular Hemoglobin 28.4 pg (28.0-33.3); Mean Platelet Volume 10.6 fL (9.4-12.4); Platelet Count 307 K/mcL (140-400); Red Blood Count 2.85 M/mcL (3.82-4.97); Red Cell Distribution Width 17.8 % (11.5-14.5); White Blood Count 20.2 K/mcL (4.3-11.1)
[2020-06-27] MEDS: *HR* Heparin 5,000 UNIT/ML VIAL SQ SCH ×2 (05:33→16:52)
[2020-06-27 05:34] LABS: Calcium 8.8 mg/dL (8.6-10.3); Magnesium 1.6 mg/dL (1.6-2.6); Potassium 3.8 mEq/L (3.5-5.1)
[2020-06-27] MEDS: Chlorhexidine Rinse 15 ML MOUTHWASH MM SCH (07:39)
[2020-06-27] MEDS: polyethylene glycoL 3350 17 GM POWD.PACK PO SCH (07:39)
[2020-06-27] MEDS: Vitamin E 200 UNIT (90MG) CAPSULE PO SCH (07:39)
[2020-06-27] MEDS: ALPRAZolam 0.5 MG TABLET PO SCH (07:39)
[2020-06-27] MEDS: Cholecalciferol (D-3) 1,000 UNIT (25MCG) TABLET PO SCH (07:40)
[2020-06-27] MEDS: allopurinoL 100 MG TABLET PO SCH (07:40)
[2020-06-27] MEDS: Venlafaxine XR (24 HR) 150 MG CAP.ER.24H PO SCH ×2 (07:40→21:25)
[2020-06-27] MEDS: *HR* OxyCODONE/APAP 5/325 TABLET PO PRN ×2 (07:40→21:34)
[2020-06-27] MEDS: allopurinoL 300 MG TABLET PO SCH (07:40)
[2020-06-27] MEDS: Vitamin B Complex/Vit C/Vit E 1 EACH TABLET PO SCH (07:40)
[2020-06-27] MEDS: Piperacillin/Tazobactam 3.375 GM in 0.9 % Sodium Chloride Mini Bag 100 ML IVPB SCH (07:41)
[2020-06-27] MEDS: Aspirin 81 MG TAB.CHEW PO SCH (07:41)
[2020-06-27] MEDS: Nystatin POWDER 30 GM BOTTLE TP SCH ×2 (07:41→21:25)
[2020-06-27] MEDS ORDERED: Haloperidol Lactate 5 MG/ML VIAL IVP PRN (11:03)
[2020-06-27] MEDS: Ampicillin/Sulbactam 1,500 MG in 0.9 % Sodium Chloride Mini Bag 100 ML IVPB SCH ×2 (11:28→16:52)
[2020-06-27 12:13] LABS: Bilirubin,Urine Negative (Negative); Blood,Urine Negative (Negative); Clarity,Urine Clear (Clear); Color,Urine Yellow (Yellow); Glucose,Urine (UA) Normal (Normal); Ketones,Urine Negative (Negative); Leukocyte Esterase,Urine Negative (Negative); Nitrite,Urine Negative (Negative); Protein,Urine Trace mg/dL (Neg-Trace); Specific Gravity,Urine 1.026 (1.010-1.025); Urobilinogen,Urine Normal (Normal)
[2020-06-27] MEDS: Mirtazapine 15 MG TABLET PO SCH (21:25)
[2020-06-28] MEDS: Ampicillin/Sulbactam 1,500 MG in 0.9 % Sodium Chloride Mini Bag 100 ML IVPB SCH ×4 (00:20→16:12)
[2020-06-28 06:42] LABS: Hematocrit 25.6 % (35.3-44.9); Mean Corpuscular HGB Conc 31.3 g/dL (31.6-35.5); Mean Corpuscular Hemoglobin 28.8 pg (28.0-33.3); Mean Corpuscular Volume 92.1 fL (83.0-100.0); Mean Platelet Volume 10.5 fL (9.4-12.4); Platelet Count 343 K/mcL (140-400); Red Blood Count 2.78 M/mcL (3.82-4.97); Red Cell Distribution Width 17.4 % (11.5-14.5); White Blood Count 20.7 K/mcL (4.3-11.1)
[2020-06-28 07:00] LABS: Calcium 8.7 mg/dL (8.6-10.3); Magnesium 1.8 mg/dL (1.6-2.6); Potassium 3.4 mEq/L (3.5-5.1)
[2020-06-28] MEDS: *HR* Heparin 5,000 UNIT/ML VIAL SQ SCH ×2 (08:27→16:13)
[2020-06-28] MEDS: Aspirin 81 MG TAB.CHEW PO SCH (08:29)
[2020-06-28] MEDS: Venlafaxine XR (24 HR) 150 MG CAP.ER.24H PO SCH ×2 (08:29→22:14)
[2020-06-28] MEDS: allopurinoL 300 MG TABLET PO SCH (08:29)
[2020-06-28] MEDS: allopurinoL 100 MG TABLET PO SCH (08:29)
[2020-06-28] MEDS: polyethylene glycoL 3350 17 GM POWD.PACK PO SCH (08:30)
[2020-06-28] MEDS: Nystatin POWDER 30 GM BOTTLE TP SCH ×2 (08:30→21:50)
[2020-06-28] MEDS: Mirtazapine 15 MG TABLET PO SCH (22:14)
[2020-06-28] MEDS: Furosemide 20 MG/2 ML VIAL IVP SCH (22:15)
[2020-06-29] MEDS: Ampicillin/Sulbactam 1,500 MG in 0.9 % Sodium Chloride Mini Bag 100 ML IVPB SCH ×5 (00:20→23:30)
[2020-06-29] MEDS: *HR* OxyCODONE/APAP 5/325 TABLET PO PRN ×3 (03:50→23:29)
[2020-06-29 05:54] LABS: Hematocrit 25.5 % (35.3-44.9); Hemoglobin 8.1 g/dL (11.5-15.4); Mean Corpuscular HGB Conc 31.8 g/dL (31.6-35.5); Mean Corpuscular Hemoglobin 28.8 pg (28.0-33.3); Mean Corpuscular Volume 90.7 fL (83.0-100.0); Mean Platelet Volume 10.2 fL (9.4-12.4); Platelet Count 389 K/mcL (140-400); Red Blood Count 2.81 M/mcL (3.82-4.97); Red Cell Distribution Width 17.1 % (11.5-14.5); White Blood Count 22.5 K/mcL (4.3-11.1)
[2020-06-29 06:22] LABS: Calcium 8.7 mg/dL (8.6-10.3); Potassium 3.5 mEq/L (3.5-5.1)
[2020-06-29] MEDS: *HR* Heparin 5,000 UNIT/ML VIAL SQ SCH ×2 (06:55→17:28)
[2020-06-29] MEDS: Furosemide 20 MG/2 ML VIAL IVP SCH ×2 (08:46→20:55)
[2020-06-29] MEDS: Venlafaxine XR (24 HR) 150 MG CAP.ER.24H PO SCH ×2 (08:57→20:54)
[2020-06-29] MEDS: allopurinoL 300 MG TABLET PO SCH (08:58)
[2020-06-29] MEDS: allopurinoL 100 MG TABLET PO SCH (08:58)
[2020-06-29] MEDS: Aspirin 81 MG TAB.CHEW PO SCH (08:59)
[2020-06-29] MEDS: polyethylene glycoL 3350 17 GM POWD.PACK PO SCH (09:00)
[2020-06-29] MEDS: Nystatin POWDER 30 GM BOTTLE TP SCH ×2 (09:00→20:56)
[2020-06-29] MEDS: Mirtazapine 15 MG TABLET PO SCH (20:54)
[2020-06-30 06:11] LABS: Hematocrit 25.5 % (35.3-44.9); Hemoglobin 7.9 g/dL (11.5-15.4); Mean Corpuscular Hemoglobin 28.8 pg (28.0-33.3); Mean Corpuscular Volume 93.1 fL (83.0-100.0); Mean Platelet Volume 10.2 fL (9.4-12.4); Platelet Count 423 K/mcL (140-400); Red Blood Count 2.74 M/mcL (3.82-4.97); Red Cell Distribution Width 17.2 % (11.5-14.5); White Blood Count 20.5 K/mcL (4.3-11.1)
[2020-06-30] MEDS: *HR* Heparin 5,000 UNIT/ML VIAL SQ SCH ×2 (06:22→17:29)
[2020-06-30] MEDS: Ampicillin/Sulbactam 1,500 MG in 0.9 % Sodium Chloride Mini Bag 100 ML IVPB SCH ×4 (06:23→23:37)
[2020-06-30 06:36] LABS: Calcium 8.9 mg/dL (8.6-10.3); Potassium 3.4 mEq/L (3.5-5.1)
[2020-06-30] MEDS: Aspirin 81 MG TAB.CHEW PO SCH (09:06)
[2020-06-30] MEDS: Venlafaxine XR (24 HR) 150 MG CAP.ER.24H PO SCH ×2 (09:06→20:47)
[2020-06-30] MEDS: polyethylene glycoL 3350 17 GM POWD.PACK PO SCH (09:06)
[2020-06-30] MEDS: Furosemide 20 MG/2 ML VIAL IVP SCH ×2 (09:07→20:48)
[2020-06-30] MEDS: allopurinoL 300 MG TABLET PO SCH (09:07)
[2020-06-30] MEDS: allopurinoL 100 MG TABLET PO SCH (09:07)
[2020-06-30] MEDS: Nystatin POWDER 30 GM BOTTLE TP SCH ×2 (09:08→21:37)
[2020-06-30] MEDS ORDERED: Amiodarone Premix 360 MG/200 ML BAG IVC ONE (09:29)
[2020-06-30] MEDS ORDERED: Amiodarone Premix 150 MG/100 ML BAG IVPB ONE ×2 (09:29→09:30)
[2020-06-30] MEDS: Amiodarone Premix 360 MG/200 ML BAG IVC SCH (17:07)
[2020-06-30] MEDS: *HR* OxyCODONE/APAP 5/325 TABLET PO PRN (20:47)
[2020-06-30] MEDS: Mirtazapine 15 MG TABLET PO SCH (20:47)
[2020-06-30] MEDS: Nystatin SUSP 5 ML UD.LIQ PO SCH ×2 (20:48→21:37)
[2020-06-30] MEDS: Nystatin Cream 15 GM TUBE TP SCH (21:38)
[2020-06-30] MEDS: Triamcinolone Acet 0.1% CRM 15 GM TUBE TP SCH (21:38)
[2020-07-01 04:32] LABS: Basophils # 0.1 K/mcL (0.0-0.2); Basophils % 0.5 %; Eosinophils # 0.4 K/mcL (0.0-0.6); Eosinophils % 2.2 %; Hematocrit 24.8 % (35.3-44.9); Hemoglobin 7.4 g/dL (11.5-15.4); Immature Granulocytes % 1.8 % (0-4); Lymphocytes % 10.6 %; Mean Corpuscular HGB Conc 29.8 g/dL (31.6-35.5); Mean Corpuscular Hemoglobin 27.6 pg (28.0-33.3); Mean Corpuscular Volume 92.5 fL (83.0-100.0); Mean Platelet Volume 10.1 fL (9.4-12.4); Monocytes # 1.1 K/mcL (0.0-1.3); Monocytes % 6.1 %; Neutrophils # 14.5 K/mcL (1.6-8.9); Nucleated Red Blood Cells 0.2 /100 WBC (0); Platelet Count 466 K/mcL (140-400); Red Blood Count 2.68 M/mcL (3.82-4.97); Red Cell Distribution Width 17.1 % (11.5-14.5); Segmented Neutrophils % 78.8 %; White Blood Count 18.5 K/mcL (4.3-11.1)
[2020-07-01 04:58] LABS: Calcium 8.6 mg/dL (8.6-10.3); Potassium 3.4 mEq/L (3.5-5.1)
[2020-07-01] MEDS: Ampicillin/Sulbactam 1,500 MG in 0.9 % Sodium Chloride Mini Bag 100 ML IVPB SCH (05:00)
[2020-07-01] MEDS: Amiodarone Premix 360 MG/200 ML BAG IVC SCH (05:30)
[2020-07-01] MEDS: Aspirin 81 MG TAB.CHEW PO SCH (07:24)
[2020-07-01] MEDS: Nystatin SUSP 5 ML UD.LIQ PO SCH ×4 (07:24→21:03)
[2020-07-01] MEDS: allopurinoL 300 MG TABLET PO SCH (07:25)
[2020-07-01] MEDS: allopurinoL 100 MG TABLET PO SCH (07:26)
[2020-07-01] MEDS: Venlafaxine XR (24 HR) 150 MG CAP.ER.24H PO SCH ×2 (07:26→21:03)
[2020-07-01] MEDS: polyethylene glycoL 3350 17 GM POWD.PACK PO SCH (07:27)
[2020-07-01] MEDS: Triamcinolone Acet 0.1% CRM 15 GM TUBE TP SCH ×2 (07:28→21:04)
[2020-07-01] MEDS: Nystatin POWDER 30 GM BOTTLE TP SCH ×2 (07:29→21:04)
[2020-07-01] MEDS: Nystatin Cream 15 GM TUBE TP SCH ×3 (07:43→21:04)
[2020-07-01] MEDS: *HR* Amiodarone 200 MG TABLET PO SCH ×2 (07:45→21:03)
[2020-07-01] MEDS: *HR* OxyCODONE/APAP 5/325 TABLET PO PRN ×2 (07:54→18:41)
[2020-07-01] MEDS ORDERED: Apixaban 5 MG TABLET PO SCH (09:00)
[2020-07-01] MEDS ORDERED: Furosemide 40 MG TABLET PO SCH (09:00)
[2020-07-01 12:39] LABS: Adenovirus Not Detected (Not Detect); Bordetella Pertussis Not Detected (Not Detect); Chlamydophila pneumoniae Not Detected (Not Detect); Coronavirus 229E Not Detected (Not Detect); Coronavirus HKU1 Not Detected (Not Detect); Coronavirus NL63 Not Detected (Not Detect); Coronavirus OC43 Not Detected (Not Detect); Human Metapneumovirus Not Detected (Not Detect); Human Rhinovirus/Enterovirus Not Detected (Not Detect); Influenza A Subtype 2009 H1 Not Detected (Not Detect); Influenza B Not Detected (Not Detect); Mycoplasma pneumoniae Not Detected (Not Detect); Parainfluenza Virus 1 Not Detected (Not Detect); Parainfluenza Virus 2 Not Detected (Not Detect); Parainfluenza Virus 3 Not Detected (Not Detect); Parainfluenza Virus 4 Not Detected (Not Detect); Respiratory Syncytial Virus Not Detected (Not Detect); SARS-CoV-2 Not Detected (Not Detect)
[2020-07-01] MEDS: Piperacillin/Tazobactam 3.375 GM in 0.9 % Sodium Chloride Mini Bag 100 ML IVPB SCH ×2 (12:52→21:02)
[2020-07-01 16:01] LABS: Bilirubin,Urine Negative (Negative); Blood,Urine Large (Negative); Budding Yeast,Urine Many per hpf (None Seen); Clarity,Urine Ex.Turbid (Clear); Color,Urine Yellow (Yellow); Glucose,Urine (UA) Normal (Normal); Hyaline Casts,Urine Few per lpf (None Seen); Ketones,Urine Negative (Negative); Leukocyte Esterase,Urine Large (Negative); Mucus,Urine Few per lpf (None-Few); Nitrite,Urine Negative (Negative); Protein,Urine 70 mg/dL (Neg-Trace); RBC,Urine TNTC per hpf (0-3); Squamous Epithelial Cell,Urine Few per hpf (None-Few); Urobilinogen,Urine Normal (Normal); WBC,Urine TNTC per hpf (0-3)
[2020-07-01 17:28] LABS: INR 1.6; Prothrombin Time 18.1 Seconds (9.4-12.1)
[2020-07-01 17:30] LABS: Activated Partial Thrombo Time 23.1 Seconds (26.0-36.0)
[2020-07-01] MEDS: Mirtazapine 15 MG TABLET PO SCH (21:03)
[2020-07-02] MEDS: Piperacillin/Tazobactam 3.375 GM in 0.9 % Sodium Chloride Mini Bag 100 ML IVPB SCH ×3 (03:00→19:41)
[2020-07-02 05:53] LABS: Basophils # 0.1 K/mcL (0.0-0.2); Basophils % 0.5 %; Eosinophils # 0.5 K/mcL (0.0-0.6); Eosinophils % 2.5 %; Hematocrit 26.5 % (35.3-44.9); Hemoglobin 8.2 g/dL (11.5-15.4); Immature Granulocytes % 1.5 % (0-4); Lymphocytes # 1.6 K/mcL (0.6-4.6); Lymphocytes % 8.6 %; Mean Corpuscular HGB Conc 30.9 g/dL (31.6-35.5); Mean Corpuscular Hemoglobin 27.7 pg (28.0-33.3); Mean Corpuscular Volume 89.5 fL (83.0-100.0); Mean Platelet Volume 9.9 fL (9.4-12.4); Monocytes % 5.6 %; Neutrophils # 14.9 K/mcL (1.6-8.9); Nucleated Red Blood Cells 0.2 /100 WBC (0); Platelet Count 559 K/mcL (140-400); Red Blood Count 2.96 M/mcL (3.82-4.97); Red Cell Distribution Width 17.1 % (11.5-14.5); Segmented Neutrophils % 81.3 %; White Blood Count 18.4 K/mcL (4.3-11.1)
[2020-07-02 05:57] LABS: Calcium 8.6 mg/dL (8.6-10.3); Potassium 3.8 mEq/L (3.5-5.1)
[2020-07-02] MEDS: *HR* Amiodarone 200 MG TABLET PO SCH ×2 (06:58→19:41)
[2020-07-02] MEDS ORDERED: *HR* Midazolam HCl 5 MG/5 ML VIAL IVP ONE (07:10)
[2020-07-02] MEDS ORDERED: *HR* FentaNYL (PF) 250 MCG/5 ML VIAL ONE (07:10)
[2020-07-02] MEDS ORDERED: *HR* Propofol 200 MG/20 ML VIAL IVP ONE (07:11)
[2020-07-02] MEDS ORDERED: *HR* Rocuronium Bromide 50 MG/5 ML VIAL ONE ×2 (07:11→08:00)
[2020-07-02] MEDS ORDERED: Dexamethasone 4 MG/ML VIAL ONE (07:11)
[2020-07-02] MEDS ORDERED: Famotidine 20 MG/2 ML VIAL ONE (07:11)
[2020-07-02] MEDS ORDERED: *HR* PHENYLEPHRINE 1,000 MCG/10 ML SYRINGE IVP ONE (07:11)
[2020-07-02] MEDS ORDERED: Lidocaine 2% Syringe 100 MG/5 ML ONE (07:13)
[2020-07-02] MEDS ORDERED: Lidocaine -MPF 2% 2 ML VIAL ONE (07:18)
[2020-07-02] MEDS ORDERED: Heparin 1,000 UNITS/500 mL 500 ML ONE (07:30)
[2020-07-02] MEDS ORDERED: ceFAZolin 2,000 MG in 0.9 % Sodium Chloride 100 ML IVPB ONE ×2 (07:30→10:58)
[2020-07-02] MEDS ORDERED: Acetaminophen IV 1,000 MG/100 ML INFUS..BTL ONE (08:22)
[2020-07-02] MEDS ORDERED: *HR* Vasopressin 20 UNIT/ML VIAL ONE (08:23)
[2020-07-02 08:34] LABS: ABG Base Excess 0 mEq/L (-2 to 3); ABG Chloride 107 mEq/L (98-107); ABG Glucose 85 mg/dL (60-95); ABG HCO3 24 mEq/L (21-27); ABG Ionized Calcium 1.25 mmol/L (1.15-1.35); ABG Oxygen Saturation 100 % (95-98); ABG PCO2 38 mmHg (35-45); ABG PH 7.41 pH Units (7.32-7.45); ABG PO2 308 mmHg (85-104); ABG TCO2 25 mEq/L (20-26)
[2020-07-02] MEDS ORDERED: Ondansetron 4 MG/2 ML VIAL ONE (08:38)
[2020-07-02] MEDS ORDERED: *HR* HYDROMORPHONE 2 MG/ML VIAL ONE (08:46)
[2020-07-02] MEDS ORDERED: *HR* FentaNYL (PF) 100 MCG/2 ML VIAL IVP PRN (10:14)
[2020-07-02] MEDS ORDERED: *HR* Labetalol 100 MG/20 ML MDV ONE (10:19)
[2020-07-02] MEDS ORDERED: *HR* Dextrose 50 % in Water (Vial) 50 ML VIAL IVP PRN (10:58)
[2020-07-02] MEDS ORDERED: Naloxone 0.4 MG/ML INJ IVP PRN (10:58)
[2020-07-02] MEDS ORDERED: Ondansetron 4 MG/2 ML VIAL IVP PRN (10:58)
[2020-07-02] MEDS ORDERED: Acetaminophen 325 MG TABLET PO PRN (10:58)
[2020-07-02] MEDS ORDERED: Furosemide 40 MG/4 ML VIAL IVP ONE (12:26)
[2020-07-02] MEDS: Nystatin SUSP 5 ML UD.LIQ PO SCH ×3 (13:47→19:41)
[2020-07-02 14:16] LABS: Hemoglobin 9.8 g/dL (11.5-15.4); Mean Corpuscular HGB Conc 29.7 g/dL (31.6-35.5); Mean Corpuscular Hemoglobin 27.1 pg (28.0-33.3); Mean Corpuscular Volume 91.4 fL (83.0-100.0); Mean Platelet Volume 9.6 fL (9.4-12.4); Platelet Count 425 K/mcL (140-400); Red Blood Count 3.61 M/mcL (3.82-4.97); White Blood Count 21.7 K/mcL (4.3-11.1)
[2020-07-02 14:27] LABS: Calcium 8.8 mg/dL (8.6-10.3); Potassium 4.3 mEq/L (3.5-5.1)
[2020-07-02 15:18] LABS: ABG Base Excess -1 mEq/L (-2 to 3); ABG HCO3 25 mEq/L (21-27); ABG Oxygen Saturation 97 % (95-98); ABG PCO2 45 mmHg (35-45); ABG PH 7.35 pH Units (7.32-7.45); ABG PO2 99 mmHg (85-104); ABG TCO2 26 mEq/L (20-26)
[2020-07-02] MEDS: Vancomycin 1,750 MG/517.5 ML IV.SOLN IVPB SCH (16:15)
[2020-07-02] MEDS: Nystatin Cream 15 GM TUBE TP SCH ×2 (16:18→19:42)
[2020-07-02] MEDS: *HR* OxyCODONE/APAP 5/325 TABLET PO PRN (17:52)
[2020-07-02] MEDS: ALPRAZolam 0.25 MG TABLET PO PRN (19:40)
[2020-07-02] MEDS: Venlafaxine XR (24 HR) 150 MG CAP.ER.24H PO SCH (19:41)
[2020-07-02] MEDS: Mirtazapine 15 MG TABLET PO SCH (19:41)
[2020-07-02] MEDS: Nystatin POWDER 30 GM BOTTLE TP SCH (19:43)
[2020-07-02] MEDS: Triamcinolone Acet 0.1% CRM 15 GM TUBE TP SCH (19:44)
[2020-07-02] MEDS: *HR* Promethazine 25 MG/ML VIAL IVP PRN (22:10)
[2020-07-02] MEDS: *HR* FentaNYL (PF) 100 MCG/2 ML VIAL IVP PRN (22:10)
[2020-07-02] MEDS: Haloperidol Lactate 5 MG/ML VIAL IVP PRN (22:10)
[2020-07-03] MEDS: Piperacillin/Tazobactam 3.375 GM in 0.9 % Sodium Chloride Mini Bag 100 ML IVPB SCH ×3 (03:38→20:05)
[2020-07-03] MEDS: *HR* FentaNYL (PF) 100 MCG/2 ML VIAL IVP PRN ×3 (04:02→20:08)
[2020-07-03 04:52] LABS: Calcium 8.2 mg/dL (8.6-10.3); Potassium 4.6 mEq/L (3.5-5.1)
[2020-07-03 06:16] LABS: Hematocrit 29.8 % (35.3-44.9); Hemoglobin 9.4 g/dL (11.5-15.4); Mean Corpuscular HGB Conc 31.5 g/dL (31.6-35.5); Mean Corpuscular Hemoglobin 27.8 pg (28.0-33.3); Mean Corpuscular Volume 88.2 fL (83.0-100.0); Red Blood Count 3.38 M/mcL (3.82-4.97); White Blood Count 26.5 K/mcL (4.3-11.1)
[2020-07-03 06:17] LABS: Basophils # 0.1 K/mcL (0.0-0.2); Basophils % 0.3 %; Immature Granulocytes % 1.3 % (0-4); Lymphocytes # 1.2 K/mcL (0.6-4.6); Lymphocytes % 4.5 %; Mean Platelet Volume 10.1 fL (9.4-12.4); Monocytes # 1.4 K/mcL (0.0-1.3); Monocytes % 5.3 %; Neutrophils # 23.5 K/mcL (1.6-8.9); Platelet Count 485 K/mcL (140-400); Red Cell Distribution Width 17.9 % (11.5-14.5); Segmented Neutrophils % 88.6 %
[2020-07-03 06:18] LABS: Nucleated Red Blood Cells 0.4 /100 WBC (0)
[2020-07-03] MEDS ORDERED: Dexmedetomidine HCl 400 MCG/100 ML MLS IVC ONE (07:33)
[2020-07-03] MEDS ORDERED: Haloperidol Lactate 5 MG/ML VIAL IVP STA (07:48)
[2020-07-03] MEDS: Dexmedetomidine HCl 400 MCG/100 ML MLS IVC SCH ×2 (08:18→16:17)
[2020-07-03] MEDS: *HR* Amiodarone 200 MG TABLET PO SCH ×2 (09:00→20:06)
[2020-07-03] MEDS ORDERED: Furosemide 40 MG TABLET PO SCH ×2 (09:00)
[2020-07-03] MEDS ORDERED: Apixaban 5 MG TABLET PO SCH (09:00)
[2020-07-03] MEDS ORDERED: allopurinoL 300 MG TABLET PO SCH (09:00)
[2020-07-03] MEDS: *HR* OxyCODONE/APAP 5/325 TABLET PO PRN (13:23)
[2020-07-03] MEDS: ALPRAZolam 0.25 MG TABLET PO PRN (13:23)
[2020-07-03] MEDS: allopurinoL 300 MG TABLET PO SCH (13:23)
[2020-07-03] MEDS: Aspirin 81 MG TAB.CHEW PO SCH (13:24)
[2020-07-03] MEDS: allopurinoL 100 MG TABLET PO SCH (13:24)
[2020-07-03] MEDS: Nystatin Cream 15 GM TUBE TP SCH ×3 (13:25→20:07)
[2020-07-03] MEDS: Nystatin SUSP 5 ML UD.LIQ PO SCH ×3 (13:25→20:08)
[2020-07-03] MEDS: Nystatin POWDER 30 GM BOTTLE TP SCH ×2 (13:25→20:08)
[2020-07-03] MEDS: Triamcinolone Acet 0.1% CRM 15 GM TUBE TP SCH ×2 (13:26→20:08)
[2020-07-03 16:04] LABS: Magnesium 1.7 mg/dL (1.6-2.6); Phosphorous 3.6 mg/dL (2.7-4.5)
[2020-07-03] MEDS: Apixaban 5 MG TABLET PO SCH ×2 (16:18→20:06)
[2020-07-03] MEDS: Venlafaxine XR (24 HR) 150 MG CAP.ER.24H PO SCH ×2 (16:18→20:06)
[2020-07-03] MEDS: Vancomycin 1,750 MG/517.5 ML IV.SOLN IVPB SCH (18:35)
[2020-07-03] MEDS: Mirtazapine 15 MG TABLET PO SCH (20:06)
[2020-07-04] MEDS: Dexmedetomidine HCl 400 MCG/100 ML MLS IVC SCH ×2 (02:38→16:47)
[2020-07-04] MEDS: Piperacillin/Tazobactam 3.375 GM in 0.9 % Sodium Chloride Mini Bag 100 ML IVPB SCH ×3 (03:51→20:33)
[2020-07-04 06:15] LABS: VBG Ionized Calcium 1.11 mmol/L (1.15-1.35)
[2020-07-04 06:15] LABS: Basophils # 0.1 K/mcL (0.0-0.2); Basophils % 0.3 %; Eosinophils # 0.3 K/mcL (0.0-0.6); Eosinophils % 1.7 %; Hematocrit 26.5 % (35.3-44.9); Immature Granulocytes % 1.6 % (0-4); Lymphocytes # 1.2 K/mcL (0.6-4.6); Lymphocytes % 6.5 %; Mean Corpuscular HGB Conc 30.6 g/dL (31.6-35.5); Mean Corpuscular Hemoglobin 27.1 pg (28.0-33.3); Mean Corpuscular Volume 88.6 fL (83.0-100.0); Mean Platelet Volume 9.6 fL (9.4-12.4); Monocytes # 1.3 K/mcL (0.0-1.3); Monocytes % 6.6 %; Neutrophils # 15.8 K/mcL (1.6-8.9); Nucleated Red Blood Cells 0.3 /100 WBC (0); Platelet Count 479 K/mcL (140-400); Red Blood Count 2.99 M/mcL (3.82-4.97); Red Cell Distribution Width 17.7 % (11.5-14.5); Segmented Neutrophils % 83.3 %
[2020-07-04 06:16] LABS: Hemoglobin 8.1 g/dL (11.5-15.4)
[2020-07-04 06:38] LABS: Calcium 8.3 mg/dL (8.6-10.3); Magnesium 1.7 mg/dL (1.6-2.6); Phosphorous 2.9 mg/dL (2.7-4.5); Potassium 3.7 mEq/L (3.5-5.1)
[2020-07-04] MEDS: *HR* Amiodarone 200 MG TABLET PO SCH ×2 (07:54→20:34)
[2020-07-04] MEDS: Apixaban 5 MG TABLET PO SCH ×2 (07:54→20:34)
[2020-07-04] MEDS: allopurinoL 100 MG TABLET PO SCH (07:54)
[2020-07-04] MEDS: Venlafaxine XR (24 HR) 150 MG CAP.ER.24H PO SCH ×2 (07:54→20:34)
[2020-07-04] MEDS: Aspirin 81 MG TAB.CHEW PO SCH (07:56)
[2020-07-04] MEDS: allopurinoL 300 MG TABLET PO SCH (07:56)
[2020-07-04] MEDS: Nystatin SUSP 5 ML UD.LIQ PO SCH ×4 (07:56→20:33)
[2020-07-04] MEDS: ALPRAZolam 0.25 MG TABLET PO PRN ×2 (08:04→20:34)
[2020-07-04] MEDS: *HR* OxyCODONE/APAP 5/325 TABLET PO PRN ×2 (08:04→20:33)
[2020-07-04] MEDS: Nystatin POWDER 30 GM BOTTLE TP SCH ×2 (10:59→20:35)
[2020-07-04] MEDS: Nystatin Cream 15 GM TUBE TP SCH ×3 (11:00→20:35)
[2020-07-04] MEDS: Triamcinolone Acet 0.1% CRM 15 GM TUBE TP SCH ×2 (11:00→20:35)
[2020-07-04] MEDS ORDERED: Furosemide 40 MG/4 ML VIAL ONE (13:51)
[2020-07-04] MEDS: Furosemide 40 MG/4 ML VIAL IVP SCH ×2 (14:59→20:33)
[2020-07-04 16:18] LABS: Adenovirus F 40/41 PCR Not detected (Not detect); Astrovirus PCR Not detected (Not detect); C.difficile Toxin A/B Gene PCR Not detected (Not detect); Campylobacter by PCR Not detected (Not detect); Cryptosporidium by PCR Not detected (Not detect); Cyclospora cayetanensis PCR Not detected (Not detect); E. coli O157 by PCR Not detected (Not detect); Entamoeba histolytica PCR Not detected (Not detect); Enteroaggregative E.coli(EAEC) Not detected (Not detect); Enteropathogenic E.coli(EPEC) Not detected (Not detect); Enterotoxigenic E.coli (ETEC) Not detected (Not detect); Giardia lamblia PCR Not detected (Not detect); Norovirus GI/GII PCR Not detected (Not detect); Plesiomonas shigelloides PCR Not detected (Not detect); Rotavirus A PCR Not detected (Not detect); Salmonella PCR Not detected (Not detect); Sapovirus PCR Not detected (Not detect); Shig/EnteroinvasiveE coli EIEC Not detected (Not detect); Shigalike tox-prod E coli STEC Not detected (Not detect); Vibrio PCR Not detected (Not detect); Vibrio cholerae PCR Not detected (Not detect); Yersinia enterocolitica PCR Not detected (Not detect)
[2020-07-04] MEDS ORDERED: Furosemide 40 MG/4 ML VIAL IVP SCH (17:00)
[2020-07-04] MEDS ORDERED: Vancomycin 1,500 MG/265 ML IV.SOLN IVPB SCH (18:00)
[2020-07-04] MEDS: Mirtazapine 15 MG TABLET PO SCH (20:34)
[2020-07-05] MEDS: *HR* Promethazine 25 MG/ML VIAL IVP PRN (01:20)
[2020-07-05] MEDS: Haloperidol Lactate 5 MG/ML VIAL IVP PRN (01:21)
[2020-07-05] MEDS: Piperacillin/Tazobactam 3.375 GM in 0.9 % Sodium Chloride Mini Bag 100 ML IVPB SCH ×3 (03:31→20:13)
[2020-07-05 06:49] LABS: Basophils # 0.1 K/mcL (0.0-0.2); Basophils % 0.4 %; Eosinophils # 0.5 K/mcL (0.0-0.6); Eosinophils % 3.3 %; Hemoglobin 8.3 g/dL (11.5-15.4); Immature Granulocytes % 1.4 % (0-4); Lymphocytes # 1.4 K/mcL (0.6-4.6); Lymphocytes % 8.9 %; Mean Corpuscular HGB Conc 29.6 g/dL (31.6-35.5); Mean Corpuscular Hemoglobin 28.1 pg (28.0-33.3); Monocytes # 1.2 K/mcL (0.0-1.3); Monocytes % 7.8 %; Neutrophils # 12.2 K/mcL (1.6-8.9); Nucleated Red Blood Cells 0.3 /100 WBC (0); Platelet Count 418 K/mcL (140-400); Red Blood Count 2.95 M/mcL (3.82-4.97); Red Cell Distribution Width 17.8 % (11.5-14.5); Segmented Neutrophils % 78.2 %; White Blood Count 15.7 K/mcL (4.3-11.1)
[2020-07-05 06:54] LABS: Mean Corpuscular Volume 94.9 fL (83.0-100.0)
[2020-07-05 07:05] LABS: Calcium 8.3 mg/dL (8.6-10.3); Potassium 3.8 mEq/L (3.5-5.1)
[2020-07-05] MEDS: Furosemide 40 MG/4 ML VIAL IVP SCH ×2 (08:35→17:18)
[2020-07-05] MEDS: Venlafaxine XR (24 HR) 150 MG CAP.ER.24H PO SCH ×2 (08:36→20:14)
[2020-07-05] MEDS: Nystatin SUSP 5 ML UD.LIQ PO SCH ×4 (08:36→20:14)
[2020-07-05] MEDS: Apixaban 5 MG TABLET PO SCH ×2 (08:37→20:13)
[2020-07-05] MEDS: Aspirin 81 MG TAB.CHEW PO SCH (08:37)
[2020-07-05] MEDS: allopurinoL 300 MG TABLET PO SCH (08:37)
[2020-07-05] MEDS: allopurinoL 100 MG TABLET PO SCH (08:37)
[2020-07-05] MEDS: *HR* Amiodarone 200 MG TABLET PO SCH ×2 (08:37→20:14)
[2020-07-05] MEDS: Nystatin Cream 15 GM TUBE TP SCH ×3 (08:49→20:14)
[2020-07-05] MEDS: Nystatin POWDER 30 GM BOTTLE TP SCH ×2 (08:49→20:15)
[2020-07-05] MEDS: Triamcinolone Acet 0.1% CRM 15 GM TUBE TP SCH ×2 (08:50→20:15)
[2020-07-05] MEDS: Dexmedetomidine HCl 400 MCG/100 ML MLS IVC SCH ×2 (08:52→20:15)
[2020-07-05] MEDS: *HR* OxyCODONE/APAP 5/325 TABLET PO PRN (18:17)
[2020-07-05] MEDS: Mirtazapine 15 MG TABLET PO SCH (20:13)
[2020-07-06] MEDS: Piperacillin/Tazobactam 3.375 GM in 0.9 % Sodium Chloride Mini Bag 100 ML IVPB SCH ×3 (03:48→19:51)
[2020-07-06] MEDS: ALPRAZolam 0.25 MG TABLET PO PRN ×2 (03:57→20:00)
[2020-07-06 04:29] LABS: Basophils # 0.1 K/mcL (0.0-0.2); Basophils % 0.6 %; Eosinophils # 0.7 K/mcL (0.0-0.6); Hematocrit 27.6 % (35.3-44.9); Hemoglobin 8.3 g/dL (11.5-15.4); Immature Granulocytes % 1.4 % (0-4); Lymphocytes # 1.6 K/mcL (0.6-4.6); Lymphocytes % 10.9 %; Mean Corpuscular HGB Conc 30.1 g/dL (31.6-35.5); Mean Corpuscular Volume 89.9 fL (83.0-100.0); Mean Platelet Volume 9.5 fL (9.4-12.4); Monocytes # 1.3 K/mcL (0.0-1.3); Monocytes % 8.7 %; Neutrophils # 10.6 K/mcL (1.6-8.9); Platelet Count 505 K/mcL (140-400); Red Blood Count 3.07 M/mcL (3.82-4.97); Red Cell Distribution Width 17.4 % (11.5-14.5); Segmented Neutrophils % 73.4 %; White Blood Count 14.4 K/mcL (4.3-11.1)
[2020-07-06 04:48] LABS: Calcium 8.3 mg/dL (8.6-10.3); Magnesium 1.5 mg/dL (1.6-2.6); Potassium 3.8 mEq/L (3.5-5.1)
[2020-07-06] MEDS ORDERED: Magic Mouthwash 10 ML UD Cup PO SCH (07:30)
[2020-07-06] MEDS: Venlafaxine XR (24 HR) 150 MG CAP.ER.24H PO SCH ×2 (08:13→19:56)
[2020-07-06] MEDS: Apixaban 5 MG TABLET PO SCH (08:13)
[2020-07-06] MEDS: allopurinoL 300 MG TABLET PO SCH (08:13)
[2020-07-06] MEDS: allopurinoL 100 MG TABLET PO SCH (08:13)
[2020-07-06] MEDS: *HR* Amiodarone 200 MG TABLET PO SCH ×2 (08:15→19:55)
[2020-07-06] MEDS: Aspirin 81 MG TAB.CHEW PO SCH (08:16)
[2020-07-06] MEDS: Furosemide 40 MG/4 ML VIAL IVP SCH ×2 (08:16→18:30)
[2020-07-06] MEDS: Nystatin SUSP 5 ML UD.LIQ PO SCH ×4 (08:16→19:57)
[2020-07-06] MEDS: Triamcinolone Acet 0.1% CRM 15 GM TUBE TP SCH ×2 (08:17→19:57)
[2020-07-06] MEDS: Nystatin POWDER 30 GM BOTTLE TP SCH ×2 (08:17→19:57)
[2020-07-06] MEDS: Nystatin Cream 15 GM TUBE TP SCH ×3 (08:17→19:57)
[2020-07-06] MEDS ORDERED: DAPTOmycin 500 MG in 0.9 % Sodium Chloride 100 ML IVPB SCH (10:00)
[2020-07-06] MEDS ORDERED: Haloperidol Lactate 5 MG/ML VIAL IVP PRN (13:43)
[2020-07-06] MEDS ORDERED: Ondansetron 4 MG/2 ML VIAL IVP PRN (13:43)
[2020-07-06] MEDS ORDERED: *HR* Promethazine 25 MG/ML VIAL IM PRN (13:43)
[2020-07-06] MEDS ORDERED: Acetaminophen 325 MG TABLET PO PRN (13:43)
[2020-07-06] MEDS ORDERED: *HR* FentaNYL (PF) 100 MCG/2 ML VIAL IVP PRN (13:43)
[2020-07-06] MEDS ORDERED: Naloxone 0.4 MG/ML INJ IVP PRN (13:43)
[2020-07-06] MEDS ORDERED: *HR* Dextrose 50 % in Water (Vial) 50 ML VIAL IVP PRN (13:43)
[2020-07-06] MEDS: Dexmedetomidine HCl 400 MCG/100 ML MLS IVC SCH (16:25)
[2020-07-06] MEDS: Apixaban 2.5 MG TABLET PO SCH (19:55)
[2020-07-06] MEDS: Mirtazapine 15 MG TABLET PO SCH (19:56)
[2020-07-07] MEDS: Piperacillin/Tazobactam 3.375 GM in 0.9 % Sodium Chloride Mini Bag 100 ML IVPB SCH ×3 (03:41→19:44)
[2020-07-07] MEDS: Dexmedetomidine HCl 400 MCG/100 ML MLS IVC SCH ×2 (03:42→19:46)
[2020-07-07 04:19] LABS: Basophils # 0.1 K/mcL (0.0-0.2); Basophils % 0.6 %; Eosinophils # 0.9 K/mcL (0.0-0.6); Eosinophils % 6.2 %; Hematocrit 27.9 % (35.3-44.9); Hemoglobin 8.5 g/dL (11.5-15.4); Immature Granulocytes % 1.4 % (0-4); Lymphocytes # 1.8 K/mcL (0.6-4.6); Lymphocytes % 12.6 %; Mean Corpuscular HGB Conc 30.5 g/dL (31.6-35.5); Mean Corpuscular Volume 88.6 fL (83.0-100.0); Mean Platelet Volume 9.8 fL (9.4-12.4); Monocytes # 1.3 K/mcL (0.0-1.3); Monocytes % 8.7 %; Neutrophils # 10.1 K/mcL (1.6-8.9); Nucleated Red Blood Cells 0.1 /100 WBC (0); Platelet Count 530 K/mcL (140-400); Red Blood Count 3.15 M/mcL (3.82-4.97); Red Cell Distribution Width 17.3 % (11.5-14.5); Segmented Neutrophils % 70.5 %; White Blood Count 14.3 K/mcL (4.3-11.1)
[2020-07-07 04:32] LABS: Calcium 8.3 mg/dL (8.6-10.3); Magnesium 1.5 mg/dL (1.6-2.6); Potassium 4.2 mEq/L (3.5-5.1)
[2020-07-07] MEDS: *HR* Amiodarone 200 MG TABLET PO SCH ×2 (09:12→19:44)
[2020-07-07] MEDS: Apixaban 2.5 MG TABLET PO SCH (09:12)
[2020-07-07] MEDS: allopurinoL 300 MG TABLET PO SCH (09:13)
[2020-07-07] MEDS: allopurinoL 100 MG TABLET PO SCH (09:13)
[2020-07-07] MEDS: Venlafaxine XR (24 HR) 150 MG CAP.ER.24H PO SCH ×2 (09:13→19:43)
[2020-07-07] MEDS: Aspirin 81 MG TAB.CHEW PO SCH (09:13)
[2020-07-07] MEDS: Nystatin Cream 15 GM TUBE TP SCH ×3 (09:14→19:45)
[2020-07-07] MEDS: Furosemide 40 MG/4 ML VIAL IVP SCH ×2 (09:14→18:57)
[2020-07-07] MEDS: Nystatin SUSP 5 ML UD.LIQ PO SCH ×4 (09:14→19:44)
[2020-07-07] MEDS: Triamcinolone Acet 0.1% CRM 15 GM TUBE TP SCH ×2 (09:14→19:45)
[2020-07-07] MEDS: Nystatin POWDER 30 GM BOTTLE TP SCH ×2 (09:15→19:45)
[2020-07-07] MEDS: DAPTOmycin 500 MG in 0.9 % Sodium Chloride 100 ML IVPB SCH (11:26)
[2020-07-07] MEDS: Apixaban 5 MG TABLET PO SCH (19:43)
[2020-07-07] MEDS: Mirtazapine 15 MG TABLET PO SCH (19:43)
[2020-07-07] MEDS: ALPRAZolam 0.25 MG TABLET PO PRN (19:44)
[2020-07-08] MEDS: Piperacillin/Tazobactam 3.375 GM in 0.9 % Sodium Chloride Mini Bag 100 ML IVPB SCH ×3 (04:43→20:26)
[2020-07-08] MEDS: allopurinoL 100 MG TABLET PO SCH (07:52)
[2020-07-08] MEDS: allopurinoL 300 MG TABLET PO SCH (07:52)
[2020-07-08] MEDS: Aspirin 81 MG TAB.CHEW PO SCH (07:53)
[2020-07-08] MEDS: *HR* Amiodarone 200 MG TABLET PO SCH ×2 (07:54→20:27)
[2020-07-08] MEDS: Apixaban 5 MG TABLET PO SCH (07:54)
[2020-07-08] MEDS: Furosemide 40 MG/4 ML VIAL IVP SCH ×2 (07:55→18:05)
[2020-07-08] MEDS: *HR* OxyCODONE/APAP 5/325 TABLET PO PRN ×2 (07:59→15:50)
[2020-07-08] MEDS: Nystatin SUSP 5 ML UD.LIQ PO SCH ×5 (08:03→20:25)
[2020-07-08] MEDS: Nystatin Cream 15 GM TUBE TP SCH ×3 (08:04→20:32)
[2020-07-08] MEDS: Nystatin POWDER 30 GM BOTTLE TP SCH ×2 (08:05→20:28)
[2020-07-08] MEDS: Triamcinolone Acet 0.1% CRM 15 GM TUBE TP SCH ×2 (08:05→20:29)
[2020-07-08] MEDS: Venlafaxine XR (24 HR) 150 MG CAP.ER.24H PO SCH ×2 (08:20→20:32)
[2020-07-08] MEDS: DAPTOmycin 500 MG in 0.9 % Sodium Chloride 100 ML IVPB SCH (10:48)
[2020-07-08] MEDS: Mirtazapine 15 MG TABLET PO SCH (20:32)
[2020-07-08] MEDS: ALPRAZolam 0.25 MG TABLET PO PRN (20:36)
[2020-07-09] MEDS: Piperacillin/Tazobactam 3.375 GM in 0.9 % Sodium Chloride Mini Bag 100 ML IVPB SCH ×2 (03:33→10:56)
[2020-07-09] MEDS: Dexmedetomidine HCl 400 MCG/100 ML MLS IVC SCH (03:34)
[2020-07-09] MEDS: *HR* OxyCODONE/APAP 5/325 TABLET PO PRN (10:54)
[2020-07-09] MEDS: *HR* Amiodarone 200 MG TABLET PO SCH (10:55)
[2020-07-09] MEDS: allopurinoL 300 MG TABLET PO SCH (10:55)
[2020-07-09] MEDS: Aspirin 81 MG TAB.CHEW PO SCH (10:55)
[2020-07-09] MEDS: allopurinoL 100 MG TABLET PO SCH (10:55)
[2020-07-09] MEDS: Venlafaxine XR (24 HR) 150 MG CAP.ER.24H PO SCH (10:56)
[2020-07-09] MEDS: Furosemide 40 MG/4 ML VIAL IVP SCH (10:56)
[2020-07-09] MEDS: DAPTOmycin 500 MG in 0.9 % Sodium Chloride 100 ML IVPB SCH (11:20)
[2020-07-09 11:57] VITALS: BP 144/83
== END 2020-07-09 14:59 | DRG 233 ==
LOC: INVDIALAB 09:09 → ICNU 17:41 → 2NNU 06-24 13:56 → ICNU 07-02 08:49 → 2NNU 07-07 21:34
PROVIDERS: ADMIT Internal Medicine Cardiovascular Disease; ATTEND Thoracic Surgery (Cardiothoracic Vascular Surgery)

== ENCOUNTER 2020-07-28 20:10 | Observation (INO) ==
[2020-07-28] MEDS ORDERED: Naloxone 0.4 MG/ML INJ IVP PRN (21:53)
[2020-07-28 22:46] LABS: Basophils # 0.1 K/mcL (0.0-0.2); Basophils % 0.9 %; Eosinophils # 1.2 K/mcL (0.0-0.6); Eosinophils % 7.3 %; Hematocrit 28.1 % (35.3-44.9); Hemoglobin 8.4 g/dL (11.5-15.4); Immature Granulocytes % 3.2 % (0-4); Mean Corpuscular HGB Conc 29.9 g/dL (31.6-35.5); Mean Corpuscular Hemoglobin 25.5 pg (28.0-33.3); Mean Corpuscular Volume 85.4 fL (83.0-100.0); Mean Platelet Volume 9.5 fL (9.4-12.4); Monocytes # 1.2 K/mcL (0.0-1.3); Monocytes % 7.6 %; Neutrophils # 9.8 K/mcL (1.6-8.9); Platelet Count 475 K/mcL (140-400); Red Blood Count 3.29 M/mcL (3.82-4.97); Red Cell Distribution Width 17.2 % (11.5-14.5); White Blood Count 15.8 K/mcL (4.3-11.1)
[2020-07-28 22:52] LABS: INR 2.2; Prothrombin Time 25.3 Seconds (9.4-12.1)
[2020-07-28 23:11] LABS: Calcium 8.4 mg/dL (8.6-10.3); Potassium 3.4 mEq/L (3.5-5.1)
[2020-07-29] MEDS: Cefepime HCl 1,000 MG in Water for inj. (sterile) 10 ML IVP SCH ×2 (05:44→17:04)
[2020-07-29 05:56] LABS: Hemoglobin 8.1 g/dL (11.5-15.4); Mean Corpuscular Hemoglobin 25.5 pg (28.0-33.3); Mean Corpuscular Volume 84.9 fL (83.0-100.0); Mean Platelet Volume 9.6 fL (9.4-12.4); Platelet Count 474 K/mcL (140-400); Red Blood Count 3.18 M/mcL (3.82-4.97); Red Cell Distribution Width 17.4 % (11.5-14.5); White Blood Count 15.8 K/mcL (4.3-11.1)
[2020-07-29 06:21] LABS: Calcium 8.5 mg/dL (8.6-10.3); Magnesium 1.4 mg/dL (1.6-2.6); Phosphorous 2.6 mg/dL (2.7-4.5); Potassium 3.4 mEq/L (3.5-5.1)
[2020-07-29] MEDS ORDERED: Ipratropium/Albuterol Neb 3 ML IH PRN (08:06)
[2020-07-29] MEDS ORDERED: hydrOXYzine pamoate 25 MG CAPSULE PO PRN (08:06)
[2020-07-29] MEDS ORDERED: Magnesium Sulfate 1 GM/102 ML PIGGYBACK IVPB ONE (08:08)
[2020-07-29] MEDS: Venlafaxine XR (24 HR) 150 MG CAP.ER.24H PO SCH ×2 (10:38→19:51)
[2020-07-29] MEDS: *HR* Amiodarone 200 MG TABLET PO SCH (10:39)
[2020-07-29] MEDS: ALPRAZolam 0.5 MG TABLET PO SCH (10:39)
[2020-07-29] MEDS: Vitamin B Complex/Vit C/Vit E 1 EACH TABLET PO SCH (10:39)
[2020-07-29] MEDS: allopurinoL 100 MG TABLET PO SCH (10:39)
[2020-07-29] MEDS ORDERED: *HR* Dextrose 50 % in Water (Vial) 50 ML VIAL IVP PRN (12:11)
[2020-07-29] MEDS ORDERED: D5% in Water 1,000 ML IVC PRN (12:11)
[2020-07-29] MEDS ORDERED: Dextrose Gel 15 GM/37.5 ML TUBE PO PRN ×2 (12:11)
[2020-07-29] MEDS: DAPTOmycin 500 MG in 0.9 % Sodium Chloride 100 ML IVPB SCH (17:03)
[2020-07-29] MEDS: Insulin LISPRO 300 UNITS/3 ML VIAL SQ SCH (17:03)
[2020-07-29] MEDS ORDERED: Acetaminophen 325 MG TABLET PO PRN (17:48)
[2020-07-29] MEDS ORDERED: Insulin LISPRO 300 UNITS/3 ML VIAL SQ SCH (18:00)
[2020-07-29] MEDS: Mirtazapine 15 MG TABLET PO SCH (19:51)
[2020-07-29] MEDS: ALPRAZolam 1 MG TABLET PO SCH (19:52)
[2020-07-30] MEDS: Cefepime HCl 1,000 MG in Water for inj. (sterile) 10 ML IVP SCH ×2 (05:28→16:29)
[2020-07-30 06:22] LABS: Basophils # 0.1 K/mcL (0.0-0.2); Basophils % 0.8 %; Eosinophils # 1.2 K/mcL (0.0-0.6); Eosinophils % 7.6 %; Hematocrit 25.7 % (35.3-44.9); Hemoglobin 7.9 g/dL (11.5-15.4); Lymphocytes # 2.8 K/mcL (0.6-4.6); Lymphocytes % 17.6 %; Mean Corpuscular HGB Conc 30.7 g/dL (31.6-35.5); Mean Corpuscular Hemoglobin 26.3 pg (28.0-33.3); Mean Corpuscular Volume 85.7 fL (83.0-100.0); Mean Platelet Volume 9.8 fL (9.4-12.4); Monocytes % 6.3 %; Neutrophils # 10.2 K/mcL (1.6-8.9); Platelet Count 451 K/mcL (140-400); Red Cell Distribution Width 17.5 % (11.5-14.5); Segmented Neutrophils % 64.7 %; White Blood Count 15.8 K/mcL (4.3-11.1)
[2020-07-30 07:03] LABS: Calcium 8.5 mg/dL (8.6-10.3); Magnesium 1.6 mg/dL (1.6-2.6); Potassium 3.7 mEq/L (3.5-5.1)
[2020-07-30] MEDS: Insulin LISPRO 300 UNITS/3 ML VIAL SQ SCH ×3 (08:14→16:22)
[2020-07-30] MEDS: allopurinoL 300 MG TABLET PO SCH (08:15)
[2020-07-30] MEDS: Venlafaxine XR (24 HR) 150 MG CAP.ER.24H PO SCH ×2 (08:15→20:14)
[2020-07-30] MEDS: *HR* Amiodarone 200 MG TABLET PO SCH (08:15)
[2020-07-30] MEDS: Vitamin B Complex/Vit C/Vit E 1 EACH TABLET PO SCH (08:15)
[2020-07-30] MEDS: ALPRAZolam 0.5 MG TABLET PO SCH (08:15)
[2020-07-30] MEDS: allopurinoL 100 MG TABLET PO SCH (08:17)
[2020-07-30] MEDS: Vitamin E 200 UNIT (90MG) CAPSULE PO SCH (08:17)
[2020-07-30] MEDS: *HR* OxyCODONE/APAP 5/325 TABLET PO PRN (16:18)
[2020-07-30] MEDS: Furosemide 20 MG TABLET PO SCH (16:38)
[2020-07-30] MEDS: DAPTOmycin 500 MG in 0.9 % Sodium Chloride 100 ML IVPB SCH (16:40)
[2020-07-30] MEDS: ALPRAZolam 1 MG TABLET PO SCH (20:14)
[2020-07-30] MEDS: Mirtazapine 15 MG TABLET PO SCH (20:14)
[2020-07-31 03:37] LABS: Basophils # 0.1 K/mcL (0.0-0.2); Basophils % 0.7 %; Eosinophils # 1.1 K/mcL (0.0-0.6); Eosinophils % 6.9 %; Hematocrit 25.6 % (35.3-44.9); Hemoglobin 7.5 g/dL (11.5-15.4); Immature Granulocytes % 2.3 % (0-4); Lymphocytes # 3.2 K/mcL (0.6-4.6); Mean Corpuscular HGB Conc 29.3 g/dL (31.6-35.5); Mean Corpuscular Hemoglobin 25.1 pg (28.0-33.3); Mean Corpuscular Volume 85.6 fL (83.0-100.0); Mean Platelet Volume 9.5 fL (9.4-12.4); Monocytes # 0.9 K/mcL (0.0-1.3); Monocytes % 5.8 %; Neutrophils # 10.5 K/mcL (1.6-8.9); Platelet Count 433 K/mcL (140-400); Red Blood Count 2.99 M/mcL (3.82-4.97); Red Cell Distribution Width 17.5 % (11.5-14.5); Segmented Neutrophils % 64.3 %; White Blood Count 16.2 K/mcL (4.3-11.1)
[2020-07-31 03:55] LABS: Magnesium 1.5 mg/dL (1.6-2.6); Phosphorous 2.4 mg/dL (2.7-4.5); Potassium 3.5 mEq/L (3.5-5.1)
[2020-07-31] MEDS: Cefepime HCl 1,000 MG in Water for inj. (sterile) 10 ML IVP SCH ×2 (05:15→18:00)
[2020-07-31 05:58] LABS: % Iron Saturation 22 % (15-50); Iron 27 mcg/dL (50-170); Transferrin 88 mg/dL (203-362)
[2020-07-31 06:15] LABS: Ferritin 432 ng/mL (10-120)
[2020-07-31 06:22] LABS: Folate > 22.3 ng/mL (3.0-16.0); Vitamin B12 1406 pg/mL (250-1100)
[2020-07-31] MEDS: Insulin LISPRO 300 UNITS/3 ML VIAL SQ SCH ×3 (07:57→18:07)
[2020-07-31] MEDS: Venlafaxine XR (24 HR) 150 MG CAP.ER.24H PO SCH ×2 (09:05→20:58)
[2020-07-31] MEDS: Furosemide 20 MG TABLET PO SCH ×2 (09:05→18:01)
[2020-07-31] MEDS: allopurinoL 300 MG TABLET PO SCH (09:05)
[2020-07-31] MEDS: *HR* Amiodarone 200 MG TABLET PO SCH (09:05)
[2020-07-31] MEDS: ALPRAZolam 0.5 MG TABLET PO SCH (09:05)
[2020-07-31] MEDS: Vitamin B Complex/Vit C/Vit E 1 EACH TABLET PO SCH (09:05)
[2020-07-31] MEDS: allopurinoL 100 MG TABLET PO SCH (09:06)
[2020-07-31] MEDS: Vitamin E 200 UNIT (90MG) CAPSULE PO SCH (09:06)
[2020-07-31] MEDS: DAPTOmycin 500 MG in 0.9 % Sodium Chloride 100 ML IVPB SCH (15:46)
[2020-07-31 19:34] LABS: Hematocrit 26.2 % (35.3-44.9)
[2020-07-31] MEDS: Mirtazapine 15 MG TABLET PO SCH (20:58)
[2020-07-31] MEDS: ALPRAZolam 1 MG TABLET PO SCH (20:58)
[2020-08-01] MEDS: Cefepime HCl 1,000 MG in Water for inj. (sterile) 10 ML IVP SCH ×2 (05:42→17:41)
[2020-08-01 07:06] LABS: Basophils # 0.1 K/mcL (0.0-0.2); Basophils % 0.7 %; Eosinophils # 1.1 K/mcL (0.0-0.6); Eosinophils % 6.8 %; Hematocrit 26.3 % (35.3-44.9); Hemoglobin 7.8 g/dL (11.5-15.4); Immature Granulocytes % 2.5 % (0-4); Lymphocytes # 3.1 K/mcL (0.6-4.6); Lymphocytes % 18.7 %; Mean Corpuscular HGB Conc 29.7 g/dL (31.6-35.5); Mean Corpuscular Hemoglobin 25.3 pg (28.0-33.3); Mean Corpuscular Volume 85.4 fL (83.0-100.0); Mean Platelet Volume 9.7 fL (9.4-12.4); Monocytes # 1.1 K/mcL (0.0-1.3); Monocytes % 6.5 %; Neutrophils # 10.8 K/mcL (1.6-8.9); Nucleated Red Blood Cells 0.1 /100 WBC (0); Platelet Count 469 K/mcL (140-400); Red Blood Count 3.08 M/mcL (3.82-4.97); Red Cell Distribution Width 17.9 % (11.5-14.5); Segmented Neutrophils % 64.8 %; White Blood Count 16.7 K/mcL (4.3-11.1)
[2020-08-01 08:08] LABS: Calcium 8.9 mg/dL (8.6-10.3); Potassium 3.6 mEq/L (3.5-5.1)
[2020-08-01] MEDS: Vitamin E 200 UNIT (90MG) CAPSULE PO SCH (08:27)
[2020-08-01] MEDS: Vitamin B Complex/Vit C/Vit E 1 EACH TABLET PO SCH (08:27)
[2020-08-01] MEDS: allopurinoL 300 MG TABLET PO SCH (08:27)
[2020-08-01] MEDS: Furosemide 20 MG TABLET PO SCH ×2 (08:27→17:42)
[2020-08-01] MEDS: Venlafaxine XR (24 HR) 150 MG CAP.ER.24H PO SCH ×2 (08:28→20:37)
[2020-08-01] MEDS: ALPRAZolam 0.5 MG TABLET PO SCH (08:28)
[2020-08-01] MEDS: Aspirin 81 MG TAB.CHEW PO SCH (08:28)
[2020-08-01] MEDS: *HR* Amiodarone 200 MG TABLET PO SCH (08:28)
[2020-08-01] MEDS: allopurinoL 100 MG TABLET PO SCH (08:28)
[2020-08-01] MEDS ORDERED: Silver Nitrate Applicator 1 STICK..EA. TP ONE ×2 (09:31→09:34)
[2020-08-01] MEDS: *HR* OxyCODONE/APAP 5/325 TABLET PO PRN (10:36)
[2020-08-01] MEDS: DAPTOmycin 500 MG in 0.9 % Sodium Chloride 100 ML IVPB SCH (14:55)
[2020-08-01] MEDS: Mirtazapine 15 MG TABLET PO SCH (20:37)
[2020-08-01] MEDS: ALPRAZolam 1 MG TABLET PO SCH (20:37)
[2020-08-02 01:47] LABS: Hematocrit 27.6 % (35.3-44.9); Hemoglobin 8.2 g/dL (11.5-15.4)
[2020-08-02 02:07] LABS: Albumin 2.6 g/dL (3.5-5.7); Albumin/Globulin Ratio 0.7 (1.1-2.2); Bilirubin,Total 0.2 mg/dL (0.3-1.0); Calcium 8.9 mg/dL (8.6-10.3); Globulin 3.8 g/dL (2.4-3.5); Magnesium 1.4 mg/dL (1.6-2.6); Potassium 3.5 mEq/L (3.5-5.1); Total Protein 6.4 g/dL (6.4-8.9)
[2020-08-02] MEDS: Cefepime HCl 1,000 MG in Water for inj. (sterile) 10 ML IVP SCH ×2 (06:10→16:52)
[2020-08-02] MEDS: Aspirin 81 MG TAB.CHEW PO SCH (08:29)
[2020-08-02] MEDS: Venlafaxine XR (24 HR) 150 MG CAP.ER.24H PO SCH ×2 (08:30→20:09)
[2020-08-02] MEDS: *HR* Amiodarone 200 MG TABLET PO SCH (08:30)
[2020-08-02] MEDS: Vitamin B Complex/Vit C/Vit E 1 EACH TABLET PO SCH (08:32)
[2020-08-02] MEDS: ALPRAZolam 0.5 MG TABLET PO SCH (08:33)
[2020-08-02] MEDS: Vitamin E 200 UNIT (90MG) CAPSULE PO SCH (08:33)
[2020-08-02] MEDS: allopurinoL 300 MG TABLET PO SCH (08:34)
[2020-08-02] MEDS: allopurinoL 100 MG TABLET PO SCH (08:34)
[2020-08-02] MEDS: Furosemide 20 MG TABLET PO SCH ×2 (09:00→16:52)
[2020-08-02] MEDS ORDERED: Magnesium Sulfate 1 GM/102 ML PIGGYBACK IVPB ONE (12:05)
[2020-08-02] MEDS: DAPTOmycin 500 MG in 0.9 % Sodium Chloride 100 ML IVPB SCH (15:01)
[2020-08-02] MEDS: ALPRAZolam 1 MG TABLET PO SCH (20:10)
[2020-08-02] MEDS: Mirtazapine 15 MG TABLET PO SCH (20:10)
[2020-08-03 02:12] LABS: Hematocrit 27.9 % (35.3-44.9); Hemoglobin 8.1 g/dL (11.5-15.4); Mean Corpuscular Hemoglobin 25.8 pg (28.0-33.3); Mean Corpuscular Volume 88.9 fL (83.0-100.0); Mean Platelet Volume 9.8 fL (9.4-12.4); Platelet Count 408 K/mcL (140-400); Red Blood Count 3.14 M/mcL (3.82-4.97); Red Cell Distribution Width 18.9 % (11.5-14.5); White Blood Count 17.2 K/mcL (4.3-11.1)
[2020-08-03 02:32] LABS: Calcium 8.4 mg/dL (8.6-10.3); Potassium 3.6 mEq/L (3.5-5.1)
[2020-08-03] MEDS: Cefepime HCl 1,000 MG in Water for inj. (sterile) 10 ML IVP SCH ×2 (06:21→16:34)
[2020-08-03] MEDS: ALPRAZolam 0.5 MG TABLET PO SCH (09:37)
[2020-08-03] MEDS: Vitamin B Complex/Vit C/Vit E 1 EACH TABLET PO SCH (09:37)
[2020-08-03] MEDS: Venlafaxine XR (24 HR) 150 MG CAP.ER.24H PO SCH ×2 (09:37→20:11)
[2020-08-03] MEDS: Aspirin 81 MG TAB.CHEW PO SCH (09:37)
[2020-08-03] MEDS: Vitamin E 200 UNIT (90MG) CAPSULE PO SCH (09:37)
[2020-08-03] MEDS: allopurinoL 100 MG TABLET PO SCH (09:38)
[2020-08-03] MEDS: Furosemide 20 MG TABLET PO SCH ×2 (09:38→16:34)
[2020-08-03] MEDS: *HR* Amiodarone 200 MG TABLET PO SCH (09:38)
[2020-08-03] MEDS: allopurinoL 300 MG TABLET PO SCH (09:38)
[2020-08-03] MEDS: DAPTOmycin 500 MG in 0.9 % Sodium Chloride 100 ML IVPB SCH (14:59)
[2020-08-03] MEDS: Ondansetron 4 MG/2 ML VIAL IVP PRN (15:31)
[2020-08-03] MEDS: ALPRAZolam 1 MG TABLET PO SCH (20:03)
[2020-08-03] MEDS: Mirtazapine 15 MG TABLET PO SCH (20:11)
[2020-08-04 05:33] LABS: Calcium 8.9 mg/dL (8.6-10.3); Magnesium 1.9 mg/dL (1.6-2.6); Phosphorous 2.5 mg/dL (2.7-4.5)
[2020-08-04] MEDS: Cefepime HCl 1,000 MG in Water for inj. (sterile) 10 ML IVP SCH ×2 (05:54→18:48)
[2020-08-04 07:26] LABS: Basophils # 0.2 K/mcL (0.0-0.2); Basophils % 0.9 %; Eosinophils # 1.6 K/mcL (0.0-0.6); Hematocrit 25.9 % (35.3-44.9); Hemoglobin 7.7 g/dL (11.5-15.4); Immature Granulocytes % 2.1 % (0-4); Lymphocytes # 4.3 K/mcL (0.6-4.6); Lymphocytes % 22.3 %; Mean Corpuscular HGB Conc 29.7 g/dL (31.6-35.5); Mean Corpuscular Hemoglobin 25.6 pg (28.0-33.3); Mean Platelet Volume 10.3 fL (9.4-12.4); Monocytes # 1.5 K/mcL (0.0-1.3); Neutrophils # 11.3 K/mcL (1.6-8.9); Nucleated Red Blood Cells 0.1 /100 WBC (0); Platelet Count 411 K/mcL (140-400); Red Blood Count 3.01 M/mcL (3.82-4.97); Red Cell Distribution Width 18.9 % (11.5-14.5); Segmented Neutrophils % 58.7 %; White Blood Count 19.3 K/mcL (4.3-11.1)
[2020-08-04] MEDS: ALPRAZolam 0.5 MG TABLET PO SCH (07:59)
[2020-08-04] MEDS: Venlafaxine XR (24 HR) 150 MG CAP.ER.24H PO SCH ×2 (07:59→21:03)
[2020-08-04] MEDS: Vitamin B Complex/Vit C/Vit E 1 EACH TABLET PO SCH (08:00)
[2020-08-04] MEDS: Furosemide 20 MG TABLET PO SCH ×2 (08:00→18:48)
[2020-08-04] MEDS: Aspirin 81 MG TAB.CHEW PO SCH (08:00)
[2020-08-04] MEDS: allopurinoL 300 MG TABLET PO SCH (08:00)
[2020-08-04] MEDS: allopurinoL 100 MG TABLET PO SCH (08:00)
[2020-08-04] MEDS: Vitamin E 200 UNIT (90MG) CAPSULE PO SCH (08:03)
[2020-08-04] MEDS: *HR* Amiodarone 200 MG TABLET PO SCH (08:03)
[2020-08-04] MEDS: Ondansetron 4 MG/2 ML VIAL IVP PRN (13:09)
[2020-08-04] MEDS: DAPTOmycin 500 MG in 0.9 % Sodium Chloride 100 ML IVPB SCH (16:08)
[2020-08-04 17:45] LABS: Adenovirus Not Detected (Not Detect); Coronavirus 229E Not Detected (Not Detect); Coronavirus HKU1 Not Detected (Not Detect); Coronavirus NL63 Not Detected (Not Detect); Coronavirus OC43 Not Detected (Not Detect)
[2020-08-04 17:46] LABS: Bordetella Pertussis Not Detected (Not Detect); Chlamydophila pneumoniae Not Detected (Not Detect); Human Metapneumovirus Not Detected (Not Detect); Human Rhinovirus/Enterovirus Not Detected (Not Detect); Influenza A Subtype 2009 H1 Not Detected (Not Detect); Influenza B Not Detected (Not Detect); Mycoplasma pneumoniae Not Detected (Not Detect); Parainfluenza Virus 1 Not Detected (Not Detect); Parainfluenza Virus 2 Not Detected (Not Detect); Parainfluenza Virus 3 Not Detected (Not Detect); Parainfluenza Virus 4 Not Detected (Not Detect); Respiratory Syncytial Virus Not Detected (Not Detect); SARS-CoV-2 Not Detected (Not Detect)
[2020-08-04] MEDS: ALPRAZolam 1 MG TABLET PO SCH (21:03)
[2020-08-04] MEDS: Mirtazapine 15 MG TABLET PO SCH (21:03)
[2020-08-05 02:17] LABS: Basophils # 0.1 K/mcL (0.0-0.2); Basophils % 0.6 %; Eosinophils # 1.5 K/mcL (0.0-0.6); Eosinophils % 8.7 %; Hematocrit 25.8 % (35.3-44.9); Hemoglobin 7.8 g/dL (11.5-15.4); Lymphocytes # 4.1 K/mcL (0.6-4.6); Mean Corpuscular HGB Conc 30.2 g/dL (31.6-35.5); Mean Corpuscular Hemoglobin 26.1 pg (28.0-33.3); Mean Corpuscular Volume 86.3 fL (83.0-100.0); Mean Platelet Volume 9.8 fL (9.4-12.4); Monocytes # 1.2 K/mcL (0.0-1.3); Monocytes % 6.5 %; Neutrophils # 10.5 K/mcL (1.6-8.9); Nucleated Red Blood Cells 0.1 /100 WBC (0); Platelet Count 467 K/mcL (140-400); Red Blood Count 2.99 M/mcL (3.82-4.97); Red Cell Distribution Width 18.9 % (11.5-14.5); Segmented Neutrophils % 59.2 %; White Blood Count 17.8 K/mcL (4.3-11.1)
[2020-08-05 02:38] LABS: Calcium 8.8 mg/dL (8.6-10.3); Potassium 3.7 mEq/L (3.5-5.1)
[2020-08-05] MEDS: Cefepime HCl 1,000 MG in Water for inj. (sterile) 10 ML IVP SCH ×2 (06:24→17:49)
[2020-08-05] MEDS: Venlafaxine XR (24 HR) 150 MG CAP.ER.24H PO SCH ×2 (09:00→20:10)
[2020-08-05] MEDS: allopurinoL 300 MG TABLET PO SCH (09:00)
[2020-08-05] MEDS: *HR* Amiodarone 200 MG TABLET PO SCH (09:00)
[2020-08-05] MEDS: ALPRAZolam 0.5 MG TABLET PO SCH (09:00)
[2020-08-05] MEDS: Aspirin 81 MG TAB.CHEW PO SCH (09:00)
[2020-08-05] MEDS: Vitamin B Complex/Vit C/Vit E 1 EACH TABLET PO SCH (09:00)
[2020-08-05] MEDS: allopurinoL 100 MG TABLET PO SCH (09:00)
[2020-08-05] MEDS: Furosemide 20 MG TABLET PO SCH ×2 (09:00→17:49)
[2020-08-05] MEDS: Vitamin E 200 UNIT (90MG) CAPSULE PO SCH (09:00)
[2020-08-05] MEDS ORDERED: 0.9 % Sodium Chloride 250 ML ONE (11:43)
[2020-08-05] MEDS: DAPTOmycin 500 MG in 0.9 % Sodium Chloride 100 ML IVPB SCH (15:55)
[2020-08-05] MEDS: Mirtazapine 15 MG TABLET PO SCH (20:10)
[2020-08-05] MEDS: ALPRAZolam 1 MG TABLET PO SCH (20:10)
[2020-08-06] MEDS: Cefepime HCl 1,000 MG in Water for inj. (sterile) 10 ML IVP SCH ×2 (05:08→17:56)
[2020-08-06 06:20] LABS: Basophils # 0.1 K/mcL (0.0-0.2); Basophils % 0.8 %; Eosinophils # 1.6 K/mcL (0.0-0.6); Eosinophils % 9.5 %; Hematocrit 29.7 % (35.3-44.9); Hemoglobin 9.2 g/dL (11.5-15.4); Immature Granulocytes % 1.3 % (0-4); Lymphocytes # 3.8 K/mcL (0.6-4.6); Lymphocytes % 22.5 %; Mean Corpuscular Hemoglobin 26.2 pg (28.0-33.3); Mean Corpuscular Volume 84.6 fL (83.0-100.0); Mean Platelet Volume 9.6 fL (9.4-12.4); Monocytes # 1.2 K/mcL (0.0-1.3); Monocytes % 6.9 %; Neutrophils # 9.8 K/mcL (1.6-8.9); Nucleated Red Blood Cells 0.1 /100 WBC (0); Platelet Count 441 K/mcL (140-400); Red Blood Count 3.51 M/mcL (3.82-4.97); White Blood Count 16.7 K/mcL (4.3-11.1)
[2020-08-06 06:39] LABS: Potassium 3.6 mEq/L (3.5-5.1)
[2020-08-06] MEDS: Vitamin E 200 UNIT (90MG) CAPSULE PO SCH (09:57)
[2020-08-06] MEDS: ALPRAZolam 0.5 MG TABLET PO SCH (09:57)
[2020-08-06] MEDS: *HR* Amiodarone 200 MG TABLET PO SCH (09:57)
[2020-08-06] MEDS: Furosemide 20 MG TABLET PO SCH ×2 (09:57→17:53)
[2020-08-06] MEDS: allopurinoL 100 MG TABLET PO SCH (09:57)
[2020-08-06] MEDS: allopurinoL 300 MG TABLET PO SCH (09:57)
[2020-08-06] MEDS: Vitamin B Complex/Vit C/Vit E 1 EACH TABLET PO SCH (09:57)
[2020-08-06] MEDS: Venlafaxine XR (24 HR) 150 MG CAP.ER.24H PO SCH ×2 (09:58→21:47)
[2020-08-06] MEDS: Aspirin 81 MG TAB.CHEW PO SCH (09:58)
[2020-08-06] MEDS: DAPTOmycin 500 MG in 0.9 % Sodium Chloride 100 ML IVPB SCH (15:12)
[2020-08-06] MEDS: ALPRAZolam 1 MG TABLET PO SCH (21:46)
[2020-08-06] MEDS: Mirtazapine 15 MG TABLET PO SCH (21:47)
[2020-08-06] MEDS: *HR* OxyCODONE/APAP 5/325 TABLET PO PRN (21:51)
[2020-08-07] MEDS: Cefepime HCl 1,000 MG in Water for inj. (sterile) 10 ML IVP SCH ×2 (05:17→17:47)
[2020-08-07] MEDS: Aspirin 81 MG TAB.CHEW PO SCH (10:14)
[2020-08-07] MEDS: allopurinoL 100 MG TABLET PO SCH (10:14)
[2020-08-07] MEDS: allopurinoL 300 MG TABLET PO SCH (10:14)
[2020-08-07] MEDS: *HR* Amiodarone 200 MG TABLET PO SCH (10:14)
[2020-08-07] MEDS: Vitamin B Complex/Vit C/Vit E 1 EACH TABLET PO SCH (10:14)
[2020-08-07] MEDS: Venlafaxine XR (24 HR) 150 MG CAP.ER.24H PO SCH ×2 (10:14→20:25)
[2020-08-07] MEDS: ALPRAZolam 0.5 MG TABLET PO SCH (10:15)
[2020-08-07] MEDS: Furosemide 20 MG TABLET PO SCH ×2 (10:15→15:49)
[2020-08-07] MEDS: Vitamin E 200 UNIT (90MG) CAPSULE PO SCH (10:23)
[2020-08-07] MEDS: *HR* OxyCODONE/APAP 5/325 TABLET PO PRN (10:31)
[2020-08-07 14:36] LABS: Basophils # 0.1 K/mcL (0.0-0.2); Basophils % 0.5 %; Eosinophils # 1.6 K/mcL (0.0-0.6); Eosinophils % 9.5 %; Hematocrit 30.7 % (35.3-44.9); Hemoglobin 9.5 g/dL (11.5-15.4); Immature Granulocytes % 1.1 % (0-4); Lymphocytes # 3.3 K/mcL (0.6-4.6); Lymphocytes % 19.5 %; Mean Corpuscular HGB Conc 30.9 g/dL (31.6-35.5); Mean Corpuscular Hemoglobin 27.2 pg (28.0-33.3); Mean Platelet Volume 9.9 fL (9.4-12.4); Monocytes % 5.7 %; Neutrophils # 10.9 K/mcL (1.6-8.9); Platelet Count 459 K/mcL (140-400); Red Blood Count 3.49 M/mcL (3.82-4.97); Red Cell Distribution Width 18.5 % (11.5-14.5); Segmented Neutrophils % 63.7 %; White Blood Count 17.1 K/mcL (4.3-11.1)
[2020-08-07 14:50] LABS: Potassium 3.3 mEq/L (3.5-5.1)
[2020-08-07] MEDS: DAPTOmycin 500 MG in 0.9 % Sodium Chloride 100 ML IVPB SCH (15:49)
[2020-08-07] MEDS: Mirtazapine 15 MG TABLET PO SCH (20:25)
[2020-08-07] MEDS: ALPRAZolam 1 MG TABLET PO SCH (20:26)
[2020-08-08 01:04] LABS: Basophils # 0.1 K/mcL (0.0-0.2); Basophils % 0.6 %; Eosinophils % 10.5 %; Hemoglobin 9.1 g/dL (11.5-15.4); Immature Granulocytes % 1.2 % (0-4); Lymphocytes # 3.5 K/mcL (0.6-4.6); Lymphocytes % 18.4 %; Mean Corpuscular HGB Conc 30.3 g/dL (31.6-35.5); Mean Corpuscular Hemoglobin 26.2 pg (28.0-33.3); Mean Corpuscular Volume 86.5 fL (83.0-100.0); Mean Platelet Volume 9.7 fL (9.4-12.4); Monocytes # 1.1 K/mcL (0.0-1.3); Monocytes % 5.8 %; Nucleated Red Blood Cells 0.1 /100 WBC (0); Platelet Count 437 K/mcL (140-400); Red Blood Count 3.47 M/mcL (3.82-4.97); Red Cell Distribution Width 18.7 % (11.5-14.5); Segmented Neutrophils % 63.5 %; White Blood Count 18.8 K/mcL (4.3-11.1)
[2020-08-08 01:27] LABS: Calcium 8.8 mg/dL (8.6-10.3); Potassium 3.5 mEq/L (3.5-5.1)
[2020-08-08] MEDS: Cefepime HCl 1,000 MG in Water for inj. (sterile) 10 ML IVP SCH ×2 (05:30→18:37)
[2020-08-08] MEDS: allopurinoL 300 MG TABLET PO SCH (08:42)
[2020-08-08] MEDS: *HR* Amiodarone 200 MG TABLET PO SCH (08:42)
[2020-08-08] MEDS: Venlafaxine XR (24 HR) 150 MG CAP.ER.24H PO SCH ×2 (08:42→20:19)
[2020-08-08] MEDS: ALPRAZolam 0.5 MG TABLET PO SCH (08:42)
[2020-08-08] MEDS: Vitamin B Complex/Vit C/Vit E 1 EACH TABLET PO SCH (08:42)
[2020-08-08] MEDS: Aspirin 81 MG TAB.CHEW PO SCH (08:43)
[2020-08-08] MEDS: Furosemide 20 MG TABLET PO SCH ×2 (08:43→15:30)
[2020-08-08] MEDS: Vitamin E 200 UNIT (90MG) CAPSULE PO SCH (08:43)
[2020-08-08] MEDS: allopurinoL 100 MG TABLET PO SCH (08:43)
[2020-08-08] MEDS: DAPTOmycin 500 MG in 0.9 % Sodium Chloride 100 ML IVPB SCH (15:30)
[2020-08-08] MEDS: Mirtazapine 15 MG TABLET PO SCH (20:19)
[2020-08-08] MEDS: ALPRAZolam 1 MG TABLET PO SCH (20:19)
[2020-08-09] MEDS: Cefepime HCl 1,000 MG in Water for inj. (sterile) 10 ML IVP SCH ×2 (05:11→16:11)
[2020-08-09] MEDS: allopurinoL 100 MG TABLET PO SCH (09:43)
[2020-08-09] MEDS: Furosemide 20 MG TABLET PO SCH ×2 (09:43→16:11)
[2020-08-09] MEDS: allopurinoL 300 MG TABLET PO SCH (09:43)
[2020-08-09] MEDS: Aspirin 81 MG TAB.CHEW PO SCH (09:43)
[2020-08-09] MEDS: ALPRAZolam 0.5 MG TABLET PO SCH (09:43)
[2020-08-09] MEDS: Vitamin E 200 UNIT (90MG) CAPSULE PO SCH (09:43)
[2020-08-09] MEDS: Venlafaxine XR (24 HR) 150 MG CAP.ER.24H PO SCH (09:43)
[2020-08-09] MEDS: *HR* Amiodarone 200 MG TABLET PO SCH (09:44)
[2020-08-09] MEDS: Vitamin B Complex/Vit C/Vit E 1 EACH TABLET PO SCH (09:44)
[2020-08-09 09:52] LABS: Basophils # 0.1 K/mcL (0.0-0.2); Basophils % 0.7 %; Eosinophils # 1.6 K/mcL (0.0-0.6); Eosinophils % 10.8 %; Hematocrit 32.3 % (35.3-44.9); Hemoglobin 9.7 g/dL (11.5-15.4); Immature Granulocytes % 1.1 % (0-4); Lymphocytes % 19.9 %; Mean Corpuscular Hemoglobin 26.3 pg (28.0-33.3); Mean Corpuscular Volume 87.5 fL (83.0-100.0); Mean Platelet Volume 9.7 fL (9.4-12.4); Monocytes # 0.9 K/mcL (0.0-1.3); Monocytes % 5.9 %; Neutrophils # 9.3 K/mcL (1.6-8.9); Platelet Count 447 K/mcL (140-400); Red Blood Count 3.69 M/mcL (3.82-4.97); Red Cell Distribution Width 18.7 % (11.5-14.5); Segmented Neutrophils % 61.6 %
[2020-08-09 10:08] LABS: Calcium 9.5 mg/dL (8.6-10.3); Potassium 3.7 mEq/L (3.5-5.1)
[2020-08-09 11:07] VITALS: BP 132/69
[2020-08-09] MEDS: DAPTOmycin 500 MG in 0.9 % Sodium Chloride 100 ML IVPB SCH (16:11)
== END 2020-08-09 17:52 ==
LOC: INTOOBSV 21:39 → 2NNU 21:39 → SUATTDRO 21:39 → 2NNU 22:30 → 2ANU 07-31 15:28
PROVIDERS: ADMIT Family Medicine; ATTEND Family Medicine

== ENCOUNTER 2020-09-02 14:41 | Observation (INO) ==
[2020-09-02] MEDS: Meropenem 1,000 MG in 0.9 % Sodium Chloride Mini Bag 100 ML IVPB SCH (16:46)
[2020-09-02 17:04] LABS: Basophils % 0.5 %; Eosinophils % 0.5 %; Hematocrit 32.1 % (35.3-44.9); Hemoglobin 9.9 g/dL (11.5-15.4); Immature Granulocytes % 0.4 % (0-4); Mean Corpuscular HGB Conc 30.8 g/dL (31.6-35.5); Mean Corpuscular Hemoglobin 26.5 pg (28.0-33.3); Mean Corpuscular Volume 86.1 fL (83.0-100.0); Mean Platelet Volume 9.7 fL (9.4-12.4); Monocytes # 0.7 K/mcL (0.0-1.3); Monocytes % 8.6 %; Neutrophils # 4.3 K/mcL (1.6-8.9); Platelet Count 324 K/mcL (140-400); Red Blood Count 3.73 M/mcL (3.82-4.97); Red Cell Distribution Width 19.9 % (11.5-14.5)
[2020-09-02] MEDS ORDERED: Naloxone 0.4 MG/ML INJ IVP PRN (17:21)
[2020-09-02 17:28] LABS: Alanine Aminotransferase 70 Units/L (7-52); Albumin 3.1 g/dL (3.5-5.7); Albumin/Globulin Ratio 0.9 (1.1-2.2); Alkaline Phosphatase 109 Units/L (34-104); Aspartate Amino Transferase 116 Units/L (13-39); BUN/Creatinine Ratio 18 (6-26); Bilirubin,Total 0.3 mg/dL (0.3-1.0); Blood Urea Nitrogen 15 mg/dL (8-23); C-Reactive Protein 32 mg/L (Less than 10); Calcium 8.2 mg/dL (8.6-10.3); Carbon Dioxide 26 mEq/L (23-29); Chloride 104 mEq/L (98-107); Globulin 3.5 g/dL (2.4-3.5); Glucose 72 mg/dL (70-105); Osmolality,Calculated 285 (280-300); Potassium 3.5 mEq/L (3.5-5.1); Sodium 138 mEq/L (136-145); Total Protein 6.6 g/dL (6.4-8.9); eGFR For African Americans > 60 (> 60); eGFR For Non-African Americans > 60 (> 60)
[2020-09-02] MEDS ORDERED: predniSONE 20 MG TABLET PO SCH (18:15)
[2020-09-02 18:44] LABS: Adenovirus Not Detected (Not Detect); Coronavirus 229E Not Detected (Not Detect); Coronavirus HKU1 Not Detected (Not Detect); Coronavirus NL63 Not Detected (Not Detect); Coronavirus OC43 Not Detected (Not Detect)
[2020-09-02 18:46] LABS: Bordetella Pertussis Not Detected (Not Detect); Chlamydophila pneumoniae Not Detected (Not Detect); Human Metapneumovirus Not Detected (Not Detect); Human Rhinovirus/Enterovirus Not Detected (Not Detect); Influenza A Subtype 2009 H1 Not Detected (Not Detect); Influenza B Not Detected (Not Detect); Mycoplasma pneumoniae Not Detected (Not Detect); Parainfluenza Virus 1 Not Detected (Not Detect); Parainfluenza Virus 2 Not Detected (Not Detect); Parainfluenza Virus 3 Not Detected (Not Detect); Parainfluenza Virus 4 Not Detected (Not Detect); Respiratory Syncytial Virus Not Detected (Not Detect); SARS-CoV-2 DETECTED (Not Detect)
[2020-09-02 20:02] LABS: Hepatitis B Surface Antigen Nonreactive (Nonreactive)
[2020-09-02 20:31] LABS: Hepatitis B Core IgM Nonreactive (Nonreactive); Hepatitis C Virus Antibody Nonreactive (Nonreactive)
[2020-09-02 20:33] LABS: Hepatitis A Antibody IgM Nonreactive (Nonreactive)
[2020-09-02] MEDS: ALPRAZolam 1 MG TABLET PO SCH (20:33)
[2020-09-02] MEDS: Mirtazapine 15 MG TABLET PO SCH (20:34)
[2020-09-02] MEDS ORDERED: Ipratropium/Albuterol Neb 3 ML IH SCH (22:00)
[2020-09-02] MEDS: Dexamethasone 4 MG/ML VIAL IVP SCH (22:08)
[2020-09-02] MEDS ORDERED: Ipratropium 1 PUFF INHALER IH ONE (22:52)
[2020-09-02] MEDS: Ipratropium 1 PUFF INHALER IH SCH (23:06)
[2020-09-03 01:30] LABS: Basophils % 0.2 %; Hematocrit 33.8 % (35.3-44.9); Hemoglobin 10.5 g/dL (11.5-15.4); Immature Granulocytes % 0.3 % (0-4); Lymphocytes # 1.9 K/mcL (0.6-4.6); Lymphocytes % 31.6 %; Mean Corpuscular HGB Conc 31.1 g/dL (31.6-35.5); Mean Corpuscular Hemoglobin 26.6 pg (28.0-33.3); Mean Corpuscular Volume 85.6 fL (83.0-100.0); Monocytes # 0.2 K/mcL (0.0-1.3); Monocytes % 3.6 %; Neutrophils # 3.9 K/mcL (1.6-8.9); Platelet Count 339 K/mcL (140-400); Red Blood Count 3.95 M/mcL (3.82-4.97); Red Cell Distribution Width 19.5 % (11.5-14.5); Segmented Neutrophils % 64.3 %; White Blood Count 6.1 K/mcL (4.3-11.1)
[2020-09-03 01:46] LABS: Alanine Aminotransferase 74 Units/L (7-52); Albumin 3.1 g/dL (3.5-5.7); Albumin/Globulin Ratio 0.8 (1.1-2.2); Alkaline Phosphatase 122 Units/L (34-104); Aspartate Amino Transferase 116 Units/L (13-39); BUN/Creatinine Ratio 20 (6-26); Bilirubin,Total 0.3 mg/dL (0.3-1.0); Blood Urea Nitrogen 17 mg/dL (8-23); Calcium 8.3 mg/dL (8.6-10.3); Carbon Dioxide 24 mEq/L (23-29); Chloride 105 mEq/L (98-107); Globulin 3.7 g/dL (2.4-3.5); Glucose 100 mg/dL (70-105); Osmolality,Calculated 288 (280-300); Potassium 3.3 mEq/L (3.5-5.1); Sodium 138 mEq/L (136-145); Total Protein 6.8 g/dL (6.4-8.9); eGFR For African Americans > 60 (> 60); eGFR For Non-African Americans > 60 (> 60)
[2020-09-03] MEDS: Meropenem 1,000 MG in 0.9 % Sodium Chloride Mini Bag 100 ML IVPB SCH ×3 (02:26→17:12)
[2020-09-03] MEDS: Ipratropium 1 PUFF INHALER IH SCH ×4 (03:51→22:38)
[2020-09-03] MEDS: *HR* Amiodarone 200 MG TABLET PO SCH (10:02)
[2020-09-03] MEDS: Dexamethasone 4 MG/ML VIAL IVP SCH (10:02)
[2020-09-03] MEDS: Aspirin Enteric Coated 81 MG Tablet PO SCH (10:02)
[2020-09-03] MEDS: ALPRAZolam 0.5 MG TABLET PO SCH (10:04)
[2020-09-03] MEDS: Venlafaxine XR (24 HR) 150 MG CAP.ER.24H PO SCH (10:11)
[2020-09-03] MEDS ORDERED: Vancomycin 1,500 MG/265 ML IV.SOLN IVPB ONE (15:00)
[2020-09-03] MEDS: Mirtazapine 15 MG TABLET PO SCH (20:56)
[2020-09-03] MEDS: ALPRAZolam 1 MG TABLET PO SCH (20:57)
[2020-09-04] MEDS: Meropenem 1,000 MG in 0.9 % Sodium Chloride Mini Bag 100 ML IVPB SCH ×4 (01:28→23:19)
[2020-09-04] MEDS ORDERED: Vancomycin 1,250 MG/262.5 ML IV.SOLN IVPB SCH (03:00)
[2020-09-04] MEDS: Ipratropium 1 PUFF INHALER IH SCH ×4 (03:59→22:57)
[2020-09-04] MEDS: *HR* Enoxaparin 40 MG/0.4 ML SYRINGE SQ SCH ×2 (06:38→06:53)
[2020-09-04] MEDS: *HR* Amiodarone 200 MG TABLET PO SCH (09:17)
[2020-09-04] MEDS: ALPRAZolam 0.5 MG TABLET PO SCH (09:17)
[2020-09-04] MEDS: Dexamethasone 4 MG/ML VIAL IVP SCH (09:17)
[2020-09-04] MEDS: Aspirin Enteric Coated 81 MG Tablet PO SCH (09:17)
[2020-09-04] MEDS: Venlafaxine XR (24 HR) 150 MG CAP.ER.24H PO SCH (09:17)
[2020-09-04 13:18] LABS: Hematocrit 32.3 % (35.3-44.9); Hemoglobin 9.7 g/dL (11.5-15.4); Mean Corpuscular Hemoglobin 25.9 pg (28.0-33.3); Mean Corpuscular Volume 86.1 fL (83.0-100.0); Mean Platelet Volume 10.3 fL (9.4-12.4); Platelet Count 335 K/mcL (140-400); Red Blood Count 3.75 M/mcL (3.82-4.97); Red Cell Distribution Width 19.3 % (11.5-14.5)
[2020-09-04 13:21] LABS: White Blood Count 12.6 K/mcL (4.3-11.1)
[2020-09-04 13:37] LABS: Calcium 8.5 mg/dL (8.6-10.3); Potassium 3.3 mEq/L (3.5-5.1)
[2020-09-04] MEDS: ALPRAZolam 1 MG TABLET PO SCH (20:13)
[2020-09-04] MEDS: Mirtazapine 15 MG TABLET PO SCH (20:13)
[2020-09-05] MEDS: Ipratropium 1 PUFF INHALER IH SCH ×4 (03:49→21:22)
[2020-09-05] MEDS: *HR* Enoxaparin 40 MG/0.4 ML SYRINGE SQ SCH (06:52)
[2020-09-05] MEDS: Venlafaxine XR (24 HR) 150 MG CAP.ER.24H PO SCH (07:17)
[2020-09-05] MEDS: Aspirin Enteric Coated 81 MG Tablet PO SCH (07:17)
[2020-09-05] MEDS: *HR* Amiodarone 200 MG TABLET PO SCH (07:17)
[2020-09-05] MEDS: ALPRAZolam 0.5 MG TABLET PO SCH (07:17)
[2020-09-05] MEDS: Dexamethasone 4 MG/ML VIAL IVP SCH (07:17)
[2020-09-05] MEDS: Meropenem 1,000 MG in 0.9 % Sodium Chloride Mini Bag 100 ML IVPB SCH ×2 (07:29→20:52)
[2020-09-05] MEDS: Mirtazapine 15 MG TABLET PO SCH (20:53)
[2020-09-05] MEDS: ALPRAZolam 1 MG TABLET PO SCH (20:53)
[2020-09-06] MEDS: Ipratropium 1 PUFF INHALER IH SCH ×4 (03:57→21:49)
[2020-09-06] MEDS: *HR* Enoxaparin 40 MG/0.4 ML SYRINGE SQ SCH (05:10)
[2020-09-06 05:15] LABS: Hemoglobin 10.1 g/dL (11.5-15.4); Mean Corpuscular HGB Conc 30.6 g/dL (31.6-35.5); Mean Corpuscular Hemoglobin 25.9 pg (28.0-33.3); Mean Corpuscular Volume 84.6 fL (83.0-100.0); Mean Platelet Volume 10.4 fL (9.4-12.4); Platelet Count 343 K/mcL (140-400); Red Cell Distribution Width 19.3 % (11.5-14.5); White Blood Count 9.5 K/mcL (4.3-11.1)
[2020-09-06 05:41] LABS: BUN/Creatinine Ratio 23 (6-26); Blood Urea Nitrogen 22 mg/dL (8-23); Calcium 8.3 mg/dL (8.6-10.3); Carbon Dioxide 26 mEq/L (23-29); Chloride 105 mEq/L (98-107); Glucose 67 mg/dL (70-105); Osmolality,Calculated 292 (280-300); Potassium 3.1 mEq/L (3.5-5.1); Sodium 140 mEq/L (136-145); eGFR For African Americans > 60 (> 60); eGFR For Non-African Americans 56 (> 60)
[2020-09-06] MEDS: Aspirin Enteric Coated 81 MG Tablet PO SCH (09:39)
[2020-09-06] MEDS: *HR* Amiodarone 200 MG TABLET PO SCH (09:40)
[2020-09-06] MEDS: ALPRAZolam 0.5 MG TABLET PO SCH (09:40)
[2020-09-06] MEDS: Venlafaxine XR (24 HR) 150 MG CAP.ER.24H PO SCH (09:40)
[2020-09-06] MEDS: Dexamethasone 4 MG/ML VIAL IVP SCH (09:41)
[2020-09-06] MEDS: Meropenem 1,000 MG in 0.9 % Sodium Chloride Mini Bag 100 ML IVPB SCH ×2 (09:41→20:18)
[2020-09-06] MEDS ORDERED: ALPRAZolam 0.5 MG TABLET PO PRN (15:20)
[2020-09-06] MEDS: Mirtazapine 15 MG TABLET PO SCH (21:31)
[2020-09-06] MEDS: ALPRAZolam 1 MG TABLET PO SCH (21:31)
[2020-09-07] MEDS: Ipratropium 1 PUFF INHALER IH SCH ×2 (04:03→11:10)
[2020-09-07] MEDS: *HR* Enoxaparin 40 MG/0.4 ML SYRINGE SQ SCH ×2 (05:10→05:13)
[2020-09-07] MEDS: *HR* Amiodarone 200 MG TABLET PO SCH (08:03)
[2020-09-07] MEDS: ALPRAZolam 0.5 MG TABLET PO SCH (08:03)
[2020-09-07] MEDS: Aspirin Enteric Coated 81 MG Tablet PO SCH (08:03)
[2020-09-07] MEDS: Dexamethasone 4 MG/ML VIAL IVP SCH (08:04)
[2020-09-07] MEDS: Venlafaxine XR (24 HR) 150 MG CAP.ER.24H PO SCH (08:04)
[2020-09-07] MEDS: Meropenem 1,000 MG in 0.9 % Sodium Chloride Mini Bag 100 ML IVPB SCH (08:05)
[2020-09-07 11:49] VITALS: BP 147/71
== END 2020-09-07 15:34 | disposition critical access hospital (66) ==
LOC: 3ANU → 3BNU 21:26
PROVIDERS: ADMIT Student in an Organized Health Care Education/Training Program; ATTEND Student in an Organized Health Care Education/Training Program

== ENCOUNTER 2020-11-27 19:01 | Observation (INO) ==
[2020-11-27 20:16] LABS: Basophils # 0.1 K/mcL (0.0-0.2); Basophils % 0.9 %; Eosinophils # 0.6 K/mcL (0.0-0.6); Eosinophils % 8.5 %; Hematocrit 39.1 % (35.3-44.9); Immature Granulocytes % 0.1 % (0-4); Lymphocytes # 2.6 K/mcL (0.6-4.6); Lymphocytes % 34.7 %; Mean Corpuscular HGB Conc 30.7 g/dL (31.6-35.5); Mean Corpuscular Hemoglobin 27.8 pg (28.0-33.3); Mean Corpuscular Volume 90.5 fL (83.0-100.0); Mean Platelet Volume 10.1 fL (9.4-12.4); Monocytes # 0.7 K/mcL (0.0-1.3); Monocytes % 9.3 %; Neutrophils # 3.5 K/mcL (1.6-8.9); Platelet Count 260 K/mcL (140-400); Red Blood Count 4.32 M/mcL (3.82-4.97); Red Cell Distribution Width 16.3 % (11.5-14.5); Segmented Neutrophils % 46.5 %; White Blood Count 7.6 K/mcL (4.3-11.1)
[2020-11-27 20:25] LABS: INR 1.1; Prothrombin Time 12.6 Seconds (9.4-12.1)
[2020-11-27 20:28] LABS: Activated Partial Thrombo Time 28.8 Seconds (26.0-36.0)
[2020-11-27 20:55] LABS: Alanine Aminotransferase 30 Units/L (7-52); Albumin 3.5 g/dL (3.5-5.7); Alkaline Phosphatase 84 Units/L (34-104); Aspartate Amino Transferase 34 Units/L (13-39); BUN/Creatinine Ratio 14 (6-26); Bilirubin,Direct 0.1 mg/dL (0.0-0.2); Bilirubin,Indirect 0.2 mg/dL (0.0-1.0); Bilirubin,Total 0.3 mg/dL (0.3-1.0); Blood Urea Nitrogen 16 mg/dL (8-23); Calcium 9.6 mg/dL (8.6-10.3); Carbon Dioxide 25 mEq/L (23-29); Chloride 106 mEq/L (98-107); Creatine Kinase 28 Units/L (30-223); Ethanol < 10 mg/dL (Less than 10); Globulin 3.5 g/dL (2.4-3.5); Glucose 121 mg/dL (70-105); Osmolality,Calculated 290 (280-300); Potassium 4.2 mEq/L (3.5-5.1); Sodium 139 mEq/L (136-145); Thyroid Stimulating Hormone 8.748 mcIU/mL (0.340-5.600); Troponin I < 0.03 ng/mL (< 0.04); eGFR For African Americans 58 (> 60); eGFR For Non-African Americans 48 (> 60)
[2020-11-27 21:47] LABS: Bacteria,Urine Few per hpf (None-Few); Bilirubin,Urine Negative (Negative); Blood,Urine Negative (Negative); Clarity,Urine Turbid (Clear); Color,Urine Yellow (Yellow); Glucose,Urine (UA) Normal (Normal); Hyaline Casts,Urine Few per lpf (None Seen); Ketones,Urine Negative (Negative); Leukocyte Esterase,Urine Moderate (Negative); Mucus,Urine Few per lpf (None-Few); Nitrite,Urine Positive (Negative); Protein,Urine Trace mg/dL (Neg-Trace); RBC,Urine 0-3 per hpf (0-3); Specific Gravity,Urine 1.018 (1.010-1.025); Urobilinogen,Urine Normal (Normal); WBC,Urine 30-50 per hpf (0-3)
[2020-11-27 21:54] LABS: Amphetamine Screen,Urine Negative ng/mL (Cutoff=1000); Barbiturate Screen,Urine Negative ng/mL (Cutoff=200); Benzodiazepines Screen,Urine Positive ng/mL (Cutoff=200); Cannabinoid Screen,Urine Negative ng/mL (Cutoff = 50); Cocaine Screen,Urine Negative ng/mL (Cutoff= 300); Opiate Screen,Urine Negative ng/mL (Cutoff=300); Phencyclidine Screen,Urine Negative ng/mL (Cutoff=25)
[2020-11-27] MEDS ORDERED: Meropenem 1,000 MG in 0.9 % Sodium Chloride Mini Bag 100 ML IVPB ONE (22:20)
[2020-11-27] MEDS ORDERED: Meropenem 1,000 MG in Water for inj. (sterile) 20 ML IVP ONE (22:50)
[2020-11-27] MEDS ORDERED: Water for inj. (sterile) 20 ML IV ONE (22:53)
[2020-11-27] MEDS ORDERED: Acetaminophen 325 MG TABLET PO PRN (23:38)
[2020-11-27] MEDS ORDERED: Ondansetron ODT 4 MG TAB.RAPDIS SL PRN (23:38)
[2020-11-27] MEDS ORDERED: Naloxone 0.4 MG/ML INJ IVP PRN (23:38)
[2020-11-27] MEDS ORDERED: Nystatin POWDER 30 GM BOTTLE TP PRN (23:41)
[2020-11-27] MEDS ORDERED: 0.9 % Sodium Chloride 1,000 ML IVC SCH (23:45)
[2020-11-28] MEDS ORDERED: Albuterol 2.5 MG/3 ML NEBULIZER IH PRN
[2020-11-28] MEDS ORDERED: Venlafaxine XR (24 HR) 150 MG CAP.ER.24H PO SCH (09:00)
[2020-11-28] MEDS: ALPRAZolam 0.5 MG TABLET PO SCH (09:16)
[2020-11-28] MEDS: Aspirin Enteric Coated 81 MG Tablet PO SCH (09:17)
[2020-11-28] MEDS: allopurinoL 100 MG TABLET PO SCH (09:18)
[2020-11-28] MEDS: *HR* Amiodarone 200 MG TABLET PO SCH (09:18)
[2020-11-28 09:46] LABS: Basophils # 0.1 K/mcL (0.0-0.2); Eosinophils # 0.7 K/mcL (0.0-0.6); Eosinophils % 8.4 %; Hematocrit 37.4 % (35.3-44.9); Hemoglobin 11.6 g/dL (11.5-15.4); Immature Granulocytes % 0.1 % (0-4); Lymphocytes # 2.7 K/mcL (0.6-4.6); Lymphocytes % 32.3 %; Mean Corpuscular Volume 90.1 fL (83.0-100.0); Monocytes # 0.7 K/mcL (0.0-1.3); Monocytes % 8.6 %; Neutrophils # 4.2 K/mcL (1.6-8.9); Platelet Count 240 K/mcL (140-400); Red Blood Count 4.15 M/mcL (3.82-4.97); Red Cell Distribution Width 16.3 % (11.5-14.5); Segmented Neutrophils % 49.6 %; White Blood Count 8.4 K/mcL (4.3-11.1)
[2020-11-28 10:05] LABS: BUN/Creatinine Ratio 14 (6-26); Blood Urea Nitrogen 15 mg/dL (8-23); Calcium 9.4 mg/dL (8.6-10.3); Carbon Dioxide 26 mEq/L (23-29); Chloride 108 mEq/L (98-107); Glucose 80 mg/dL (70-105); Magnesium 1.6 mg/dL (1.6-2.6); Osmolality,Calculated 294 (280-300); Potassium 3.5 mEq/L (3.5-5.1); Sodium 142 mEq/L (136-145); eGFR For African Americans > 60 (> 60); eGFR For Non-African Americans 51 (> 60)
[2020-11-28] MEDS ORDERED: Mirtazapine 15 MG TABLET PO SCH (21:00)
[2020-11-29] MEDS: *HR* Amiodarone 200 MG TABLET PO SCH (10:09)
[2020-11-29] MEDS: ALPRAZolam 0.5 MG TABLET PO SCH (10:09)
[2020-11-29] MEDS: allopurinoL 100 MG TABLET PO SCH (10:09)
[2020-11-29] MEDS: Aspirin Enteric Coated 81 MG Tablet PO SCH (10:09)
[2020-11-29 10:51] VITALS: BP 121/63
== END 2020-11-29 14:35 | disposition home health service (06) ==
LOC: 3ANU 19:01 → EMEROOARM 19:01 → 3ANU 11-28 00:36
PROVIDERS: ADMIT Internal Medicine; ATTEND Internal Medicine